=== PATIENT | male | born 1950 | race Caucasian/White ===

== ENCOUNTER → 2016-07-04 | Outpatient (CLI) | payer BC ==
[~2016-07-04] MED LIST: SODIUM CHLORIDE 0.9% 250 ML in EMPTY BAG 1 BAG IV PRN; SODIUM CHLORIDE 0.9% 500 ML in EMPTY BAG 1 BAG IV PRN
[2016-07-04 13:41] LABS: Anisocytosis Slight; CH 22.7; CHCM 29.8; HCT 50.4 % (39.0-53.0); HDW 3.11; HGB 15.8 gm/dL (13.0-17.5); Hypochromasia Marked; MCHC 31.3 g/dL (31.0-37.0); MCV 76.6 fL (80.0-100.0); Mean Platelet Volume 6.4; Microcytosis Slight; RBC 6.58 m/uL (4.30-5.90); RDW 17.1 % (11.5-15.5); WBC 4.3 k/uL (3.8-10.6)
[2016-07-04 13:45] LABS: INR 2.5 (<1.1); Prothrombin Time 23.6 sec (9.0-12.0)
[2016-07-04 14:13] VITALS: RESP 16; TEMP 98.2
[2016-07-04 14:20] VITALS: BP 154/77; PULSE 77
== END | disposition home or self-care (01) ==
LOC: PROCWHC3 12:54
PROVIDERS: ATTEND Internal Medicine
DX: D45 Polycythemia vera (principal)
CPT/HCPCS: 36415; 85027; 85610; 99195

== ENCOUNTER → 2016-09-29 | Day surgery (SDC) | payer BC ==
[2016-09-27 16:15] VITALS: BMI 40.6
[~2016-09-29] MED LIST changes: +LACTATED RINGERS 1,000 ML IV SCH; +LIDOCAINE 1% 20 ML VIAL (10MG/ML) FOR IV START INTRADERMA PRN; +MIDAZOLAM 2 MG/2 ML VIAL ONE; +PROPOFOL 10 MG/ML 20 ML VIAL IV ONE; -SODIUM CHLORIDE 0.9% 250 ML in EMPTY BAG 1 BAG IV PRN; -SODIUM CHLORIDE 0.9% 500 ML in EMPTY BAG 1 BAG IV PRN; +fentaNYL (PF) 50 MCG/ML 2 ML AMP ONE
[2016-09-29 10:37] VITALS: RESP 16; TEMP 97
--- NOTE | 2016-09-29 10:58 | P.GSHP ---
History of Present Illness H&P Date: 09/29/16 Chief Complaint: Abdominal pain, change in bowel habits Patient here today for upper and lower endoscopy. He is complaining some heartburn chronically as well as upper abdominal pain. No dysphagia. He takes antacids as needed. He has had recent constipation with hard stools despite stool softeners. No rectal bleeding or melena. No family history of colon cancer. Last colonoscopy he believes was about 10 years ago and he had a polyp at that time. 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, vertigo, change in bowel habits, uses CPAP History of Any Multi-Drug Resistant Organisms: None Reported Past Surgical History: Back Surgery, Joint Replacement, Orthopedic Surgery Additional Past Surgical History / Comment(s): Herniated disc repair, lt hip replacement , lt shoulder surgery, surgery on portal vein Past Anesthesia/Blood Transfusion Reactions: No Reported Reaction Past Psychological History: No Psychological Hx Reported Smoking Status: Former smoker Past Alcohol Use History: Rare Additional Past Alcohol Use History / Comment(s): SMOKED FROM Past Drug Use History: None Reported - Past Family History Father Family Medical History: Blood Disorder, Cancer, Deep Vein Thrombosis (DVT) Additional Family Medical History / Comment(s): Mother Family Medical History: Cancer Additional Family Medical History / Comment(s): Sister(s) Family Medical History: Blood Disorder, Deep Vein Thrombosis (DVT) Brother(s) Family Medical History: CVA/TIA Medications and Allergies Home Medications Medication Instructions Recorded Confirmed Type Diclofenac Sodium [Voltaren] 75 mg PO DAILY 11/01/13 09/29/16 History Propranolol [Inderal] 5 mg PO 2100,0300 11/01/13 09/29/16 History Warfarin [Coumadin] 7.5 mg PO MOTUTHFRSA 11/01/13 09/29/16 History Warfarin [Coumadin] 10 mg PO SUWE 05/06/15 09/29/16 History HYDROcodone/APAP 7.5-325MG [[place] 1 tab PO Q12H PRN 05/21/15 09/29/16 History 7.5-325] amLODIPine [Norvasc] 5 mg PO 2100 04/26/16 09/29/16 History Oxymetazoline 0.05% Nasl [place] 2 spray EA NOSTRIL BID PRN 09/27/16 09/29/16 History [Afrin 0.05% Nasal [place]] Ranitidine HCl 150 mg PO HS 09/27/16 09/29/16 History Allergies Allergy/AdvReac Type Severity Reaction Status Date / Time enalaprilat [From Vasotec] AdvReac Cough Verified 09/27/16 16:11 erythromycin base AdvReac Rash/Hives Verified 09/27/16 15:48 [From E-Mycin] Surgical - Exam Vital Signs Temp Pulse Resp BP Pulse Ox 97.0 F L 65 16 136/85 97 09/29/16 10:36 09/29/16 10:36 09/29/16 10:36 09/29/16 10:36 09/29/16 10:36 Physical exam: General: Well-developed, well-nourished HEENT: Normocephalic, sclerae nonicteric Abdomen: Nontender, nondistended Extremities: No edema Neuro: Alert and oriented Assessment and Plan (1) Change in bowel habits Narrative/Plan: Will proceed with upper and lower endoscopy at this time. Status: Acute
--- NOTE | 2016-09-29 11:25 | P.PCN ---
Date of Procedure: 09/29/16 Procedure(s) Performed: PREOPERATIVE DIAGNOSIS: Abdominal pain, change in bowel habits POSTOPERATIVE DIAGNOSIS: Duodenitis, duodenal ulcer, gastritis with small erosions, hiatal hernia, distal esophagitis, diverticulosis, small superficial rectal ulceration PROCEDURE: 1. EGD with biopsy 2. Colonoscopy with biopsy ANESTHESIA: [facility] [place] SURGEON: Ki Dela Cruz M.D. SPECIMENS: Duodenum, antrum, GE junction, rectal ulcer ENDOSCOPIC PROCEDURE: The patient was on the endoscopy table in the left decubitus position. The Olympus gastroscope was inserted into the oropharynx and passed under direct visualization to the region of the third portion of the duodenum. From that point the scope was slowly withdrawn inspecting all surfaces carefully. There was evidence of duodenitis. There were 2 ulcerations present at the duodenal bulb. Biopsies of the duodenum took place. The pylorus was widely patent. The stomach was carefully inspected. There was gastritis present with a few small erosions. A biopsy of the antrum took place to rule out H. pylori. Retroflexion revealed a small sliding hiatal hernia. At the GE junction itself there was evidence of erosive esophagitis. Biopsies took place of that region. The remainder of the esophagus appear normal. The patient was kept on the endoscopy table in the left decubitus position. The Olympus colonoscope was inserted into the anus and passed under direct visualization to the base of the cecum. The appendiceal orifice was visualized. From that point the scope was slowly withdrawn inspecting all surfaces carefully. There were no neoplastic inflammatory or polypoid lesions throughout the cecum, ascending, transverse, descending, and sigmoid colon. In the rectum distally there was a small superficial ulceration noted. Biopsies took place of this area. There was mild diverticulosis noted on the left colon. Digital rectal examination was normal. The patient was taken to the recovery room in stable condition per anesthesia guidelines. RECOMMENDATIONS: Begin antiacid therapy. Await biopsy results. Increase stool softeners.
[2016-09-29 11:41] VITALS: PULSE 60
[2016-09-29 11:55] VITALS: BP 94/60
== END ==
LOC: ORWHC2ENDO 10:07
PROVIDERS: ATTEND Surgery
DX: K29.50 Unspecified chronic gastritis without bleeding (principal); K29.80 Duodenitis without bleeding; K52.89 Other specified noninfective gastroenteritis and colitis; K21.0 Gastro-esophageal reflux disease with esophagitis; G47.30 Sleep apnea, unspecified; I10 Essential (primary) hypertension; G47.33 Obstructive sleep apnea (adult) (pediatric); G89.29 Other chronic pain; Z99.89 Dependence on other enabling machines and devices; Z86.718 Personal history of other venous thrombosis and embolism; Z79.01 Long term (current) use of anticoagulants; Z79.899 Other long term (current) drug therapy; K59.00 Constipation, unspecified; Z86.010 Personal history of colon polyps; D75.1 Secondary polycythemia; Z87.891 Personal history of nicotine dependence
CPT/HCPCS: 88305; 88342; 45378; 43239; J2250; J3010; J2704

== ENCOUNTER → 2017-01-22 | Outpatient (CLI) | payer BC, MEDICARE ==
[2017-01-22 14:28] VITALS: BP 126/73; PULSE 71; RESP 16; TEMP 98.1
[2017-01-22 14:40] LABS: Anisocytosis Slight; CH 25.8; CHCM 31.5; HCT 56.1 % (39.0-53.0); HDW 2.76; HGB 17.3 gm/dL (13.0-17.5); Hypochromasia Slight; MCH 25.3 pg (25.0-35.0); MCHC 30.8 g/dL (31.0-37.0); MCV 82.2 fL (80.0-100.0); Microcytosis Slight; RBC 6.82 m/uL (4.30-5.90); RDW 18.9 % (11.5-15.5)
[2017-01-22 14:51] LABS: INR 1.6 (<1.2); Prothrombin Time 15.2 sec (9.0-12.0)
== END ==
LOC: PROCWHC3 14:22
PROVIDERS: ATTEND Internal Medicine
DX: D45 Polycythemia vera (principal)
CPT/HCPCS: 36415; 85027; 85610; 99195

== ENCOUNTER 2017-02-23 10:27 | Emergency (ER) | payer MEDICARE ==
[2017-02-23 10:35] VITALS: TEMP 97.8
[2017-02-23] MEDS ORDERED: SODIUM CHLORIDE 0.9% 1,000 ML IV STA ×2 (11:00)
--- NOTE | 2017-02-23 11:02 | ED ---
General Adult HPI - General Source: patient, RN notes reviewed Mode of arrival: ambulatory Limitations: no limitations <Ki Ohara - Last Filed: 02/23/17 15:27> <Zuhair Pascual - Last Filed: 02/24/17 08:29> - General Chief complaint: Abdominal Pain Stated complaint: Abd pain/constipation Time Seen by Provider: 02/23/17 10:50 - History of Present Illness Initial comments: Patient 66-year-old male who presents emergency room today with chief complaint of symptoms of constipation over the last 2 weeks. He states he's only had small bowel movements. He states been trying multiple [id number] and home remedies with little relief. He states he does have some cramping abdominal pain in the lower abdomen. Patient admits that he had similar symptoms a few months ago needed an enema. Patient denies any other complaints or symptoms currently at this time. Patient denies any recent fever, chills, shortness of breath, chest pain, back pain, nausea or vomiting, numbness or tingling, dysuria or hematuria, diarrhea, headaches or visual changes, or any other complaints. (Ki Ohara) - Related Data Home Medications Medication Instructions Recorded Confirmed Diclofenac Sodium [Voltaren] 75 mg PO DAILY 11/01/13 02/23/17 Propranolol [Inderal] 5 mg PO 2100,0300 11/01/13 02/23/17 HYDROcodone/APAP 7.5-325MG [[place] 1 tab PO Q12H PRN 05/21/15 02/23/17 7.5-325] amLODIPine [Norvasc] 5 mg PO HS 04/26/16 02/23/17 Oxymetazoline 0.05% Nasl [place] 2 spray EA NOSTRIL BID PRN 09/27/16 02/23/17 [Afrin 0.05% Nasal [place]] Ranitidine HCl 150 mg PO HS 09/27/16 02/23/17 Warfarin [Coumadin] 7.5 mg PO MOTUTHFRSA 02/23/17 02/23/17 Warfarin [Coumadin] 10 mg PO SUWE 02/23/17 02/23/17 Previous Rx's Medication Instructions Recorded Polyethylene Glycol 3350 [Miralax] 17 gm PO DAILY #7 packet 02/23/17 Allergies Allergy/AdvReac Type Severity Reaction Status Date / Time enalaprilat [From Vasotec] AdvReac Cough Verified 02/23/17 10:55 erythromycin base AdvReac Rash/Hives Verified 02/23/17 10:55 [From E-Mycin] Review of Systems ROS Other: All systems not noted in ROS Statement are negative. <Ki Ohara - Last Filed: 02/23/17 15:27> ROS Other: All systems not noted in ROS Statement are negative. <Zuhair Pascual - Last Filed: 02/24/17 08:29> ROS Statement: Those systems with pertinent positive or pertinent negative responses have been documented in the HPI. 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, vertigo, change in bowel habits, uses CPAP History of Any Multi-Drug Resistant Organisms: None Reported Past Surgical History: Back Surgery, Joint Replacement, Orthopedic Surgery Additional Past Surgical History / Comment(s): Herniated disc repair, lt hip replacement , lt shoulder surgery, surgery on portal vein Past Anesthesia/Blood Transfusion Reactions: No Reported Reaction Past Psychological History: No Psychological Hx Reported Smoking Status: Former smoker - Past Family History Father Family Medical History: Blood Disorder, Cancer, Deep Vein Thrombosis (DVT) Additional Family Medical History / Comment(s): Mother Family Medical History: Cancer Additional Family Medical History / Comment(s): Sister(s) Family Medical History: Blood Disorder, Deep Vein Thrombosis (DVT) Brother(s) Family Medical History: CVA/TIA <Ki Ohara - Last Filed: 02/23/17 15:27> General Exam Limitations: no limitations <Ki Ohara - Last Filed: 02/23/17 15:27> <Zuhair Pascual - Last Filed: 02/24/17 08:29> - General Exam Comments Initial Comments: General: The patient is awake and alert, in no distress, and does not appear acutely ill. Eye: Pupils are equal, round and reactive to light, extra-ocular movements are intact. No nystagmus. There is normal conjunctiva bilaterally. No signs of icterus. Ears, nose, mouth and throat: There are moist mucous membranes and no oral lesions. Neck: The neck is supple, there is no tenderness or JVD. Cardiovascular: There is a regular rate and rhythm. No murmur, rub or gallop is appreciated. Respiratory: Lungs are clear to auscultation, respirations are non-labored, breath sounds are equal. No wheezes, stridor, rales, or rhonchi. Gastrointestinal: Abdomen soft on palpation. Normal bowel sounds. No rebound tenderness. No guarding. Mild discomfort on palpation to the lower abdomen both on left and right. Musculoskeletal: Normal ROM, no tenderness. Strength 5/5. Sensation intact. Pulses equal bilaterally 2+. Neurological: A&O x 3. CN II-XII intact, There are no obvious motor or sensory deficits. Coordination appears grossly intact. Speech is normal. Skin: Skin is warm and dry and no rashes or lesions are noted. Psychiatric: Cooperative, appropriate mood & affect, normal judgment. (Ki Ohara) Medical Decision Making - Lab Data Result diagrams: 02/23/17 11:18 02/23/17 11:18 <Ki Ohara - Last Filed: 02/23/17 15:27> - Lab Data Result diagrams: 02/23/17 11:18 02/23/17 11:18 <Zuhair Pascual - Last Filed: 02/24/17 08:29> - Medical Decision Making Patient's CT reviewed and shows findings suggestive of extensive retained fecal degrees. Additional localized wall thickening involving sigmoid colon. Patient is medicated recent colonoscopy. Patient does have diverticulosis no diverticulitis. Numerous versus seen in the upper abdomen to hepatocellular disease. 4. Portal vein is poorly opacified. Patient states is chronic finding. States this occurred 12 years ago was at [facility] for this. Case discussed in detail with attending physician who has seen patient at bedside. Patient reexamined at this time shows no signs of distress resting comfortably. Patient given Ativan emergency room was able have bowel movement. States more carpal at this time. Will be discharged home with magnesium citrate. He is advised to follow-up with his family doctor increase his oral fluids will also be given a prescription for MiraLAX. Advised return for any other concerns. (Ki Ohara) 66-year-old male presenting with two-week history of decreased bowel movements. Patient has history of portal vein thrombosis which occurred approximately 12 years ago. There was an attempt to remove the thrombus at that time. This was unsuccessful. Patient has had this issue since then. CT of the abdomen is obtained, does show extensive retained feces, there is poor opacification of the portal vein consistent with his past medical history. Patient is given an enema and magnesium citrate. He does have several large bowel movement while in the emergency department. Patient is comfortable with discharge home. He will return to the emergency department with worsening symptoms. He will follow -up with his primary care physician. (Zuhair Pascual) - Lab Data Lab Results 02/23/17 02/23/17 02/23/17 Range/Units 11:18 11:18 11:18 WBC 4.0 (3.8-10.6) k/uL RBC 6.76 H (4.30-5.90) m/uL Hgb 17.3 (13.0-17.5) gm/dL Hct 55.5 H (39.0-53.0) % MCV 82.1 (80.0-100.0) fL MCH 25.7 (25.0-35.0) pg MCHC 31.3 (31.0-37.0) g/dL RDW 16.7 H (11.5-15.5) % Plt Count 215 (150-450) k/uL Neutrophils % 53 % Lymphocytes % 32 % Monocytes % 9 % Eosinophils % 2 % Basophils % 1 % Neutrophils # 2.1 (1.3-7.7) k/uL Lymphocytes # 1.3 (1.0-4.8) k/uL Monocytes # 0.4 (0-1.0) k/uL Eosinophils # 0.1 (0-0.7) k/uL Basophils # 0.0 (0-0.2) k/uL Hypochromasia Moderate Anisocytosis Slight PT (9.0-12.0) sec INR (<1.2) APTT (22.0-30.0) sec Sodium 141 (137-145) mmol/L Potassium 4.4 (3.5-5.1) mmol/L Chloride 108 H (98-107) mmol/L Carbon Dioxide 22 (22-30) mmol/L Anion Gap 11 mmol/L BUN 14 (9-20) mg/dL Creatinine 0.78 (0.66-1.25) mg/dL Est GFR (MDRD) Af Amer >60 (>60 ml/min/1.73 sqM) Est GFR (MDRD) Non-Af >60 (>60 ml/min/1.73 sqM) Glucose 95 (74-99) mg/dL Plasma Lactic Acid [place] 1.0 (0.7-2.0) mmol/L Calcium 9.2 (8.4-10.2) mg/dL Total Bilirubin 0.7 (0.2-1.3) mg/dL AST 23 (17-59) U/L ALT 29 (21-72) U/L Alkaline Phosphatase 82 (38-126) U/L Total Protein 6.9 (6.3-8.2) g/dL Albumin 4.1 (3.5-5.0) g/dL Urine Color Urine Appearance (Clear) Urine pH (5.0-8.0) Ur Specific [place] (1.001-1.035) Urine Protein (Negative) Urine Glucose (UA) (Negative) Urine Ketones (Negative) Urine Blood (Negative) Urine Nitrite (Negative) Urine Bilirubin (Negative) Urine Urobilinogen (<2.0) mg/dL Ur Leukocyte Esterase (Negative) 02/23/17 02/23/17 Range/Units 11:18 12:57 WBC (3.8-10.6) k/uL RBC (4.30-5.90) m/uL Hgb (13.0-17.5) gm/dL Hct (39.0-53.0) % MCV (80.0-100.0) fL MCH (25.0-35.0) pg MCHC (31.0-37.0) g/dL RDW (11.5-15.5) % Plt Count (150-450) k/uL Neutrophils % % Lymphocytes % % Monocytes % % Eosinophils % % Basophils % % Neutrophils # (1.3-7.7) k/uL Lymphocytes # (1.0-4.8) k/uL Monocytes # (0-1.0) k/uL Eosinophils # (0-0.7) k/uL Basophils # (0-0.2) k/uL Hypochromasia Anisocytosis PT 17.5 H (9.0-12.0) sec INR 1.8 H (<1.2) APTT 28.1 (22.0-30.0) sec Sodium (137-145) mmol/L Potassium (3.5-5.1) mmol/L Chloride (98-107) mmol/L Carbon Dioxide (22-30) mmol/L Anion Gap mmol/L BUN (9-20) mg/dL Creatinine (0.66-1.25) mg/dL Est GFR (MDRD) Af Amer (>60 ml/min/1.73 sqM) Est GFR (MDRD) Non-Af (>60 ml/min/1.73 sqM) Glucose (74-99) mg/dL Plasma Lactic Acid [place] (0.7-2.0) mmol/L Calcium (8.4-10.2) mg/dL Total Bilirubin (0.2-1.3) mg/dL AST (17-59) U/L ALT (21-72) U/L Alkaline Phosphatase (38-126) U/L Total Protein (6.3-8.2) g/dL Albumin (3.5-5.0) g/dL Urine Color Yellow Urine Appearance Clear (Clear) Urine pH 7.0 (5.0-8.0) Ur Specific [place] 1.015 (1.001-1.035) Urine Protein Trace H (Negative) Urine Glucose (UA) Negative (Negative) Urine Ketones Negative (Negative) Urine Blood Negative (Negative) Urine Nitrite Negative (Negative) Urine Bilirubin Negative (Negative) Urine Urobilinogen <2.0 (<2.0) mg/dL Ur Leukocyte Esterase Negative (Negative) Disposition Time of Disposition: 15:29 <Ki Ohara - Last Filed: 02/23/17 15:27> <Zuhair Pascual - Last Filed: 02/24/17 08:29> Clinical Impression: Abdominal pain Disposition: HOME SELF-CARE Condition: Good Instructions: Constipation (ED) Additional Instructions: Please use medication as discussed. Please follow-up with family doctor in the next 2 days. Please return to emergency room if the symptoms increase or worsen or for any other concerns. Prescriptions: Polyethylene Glycol 3350 [Miralax] 17 gm PO DAILY #7 packet Referrals: Moris Hernandez MD [Primary Care Provider] - 1-2 days
[2017-02-23 11:34] LABS: Anisocytosis Slight; Basophils % (A) 1 %; CHCM 30.6; Eosinophils # (A) 0.1 k/uL (0-0.7); Eosinophils % (A) 2 %; HCT 55.5 % (39.0-53.0); HDW 2.62; HGB 17.3 gm/dL (13.0-17.5); Hypochromasia Moderate; Luc # (Auto) 0.13; Luc % (Auto) 3; Lymphocytes # (A) 1.3 k/uL (1.0-4.8); Lymphocytes % (A) 32 %; MCH 25.7 pg (25.0-35.0); MCHC 31.3 g/dL (31.0-37.0); MCV 82.1 fL (80.0-100.0); Mean Platelet Volume 6.6; Monocytes # (A) 0.4 k/uL (0-1.0); Monocytes % (A) 9 %; Neutrophils # (A) 2.1 k/uL (1.3-7.7); Neutrophils % (A) 53 %; RBC 6.76 m/uL (4.30-5.90); RDW 16.7 % (11.5-15.5); WBC (Perox) 3.69
[2017-02-23 11:40] LABS: Appearance,Urine Clear (Clear); Bilirubin,Urine Negative (Negative); Glucose,Urine (UA) Negative (Negative); Ketones,Urine Negative (Negative); Leukocyte Esterase,Urine Negative (Negative); Nitrite,Urine Negative (Negative); Protein,Urine Trace (Negative); Specific Gravity,Urine 1.015 (1.001-1.035); UA Billing (MACRO vs. MICRO) CHEM; Urobilinogen,Urine <2.0 mg/dL (<2.0)
[2017-02-23 11:51] LABS: ALT 29 U/L (21-72); AST 23 U/L (17-59); Alkaline Phosphatase 82 U/L (38-126); Anion Gap 11 mmol/L; Blood Urea Nitrogen 14 mg/dL (9-20); Calcium 9.2 mg/dL (8.4-10.2); Carbon Dioxide 22 mmol/L (22-30); Chloride 108 mmol/L (98-107); Glucose 95 mg/dL (74-99); Non-African American GFR(MDRD) >60 (>60 ml/min/1.73 sqM); Potassium 4.4 mmol/L (3.5-5.1); Sodium 141 mmol/L (137-145); Total Bilirubin 0.7 mg/dL (0.2-1.3); Total Protein 6.9 g/dL (6.3-8.2)
[2017-02-23] MEDS ORDERED: ONDANSETRON 4 MG/2 ML VIAL IVP STA (11:52)
[2017-02-23] MEDS ORDERED: HYDROmorphone 1 MG/ML 1 ML SYRINGE IVP STA (11:52)
[2017-02-23] MEDS ORDERED: NA PHOS,M-B/NA PHOS,DI-BA 133 ML ENEMA RECTAL STA (12:03)
--- NOTE | 2017-02-23 12:05 | XR ---
EXAMINATION TYPE: XR abdomen complete w decub DATE OF EXAM: 02/23/2017 COMPARISON: NONE HISTORY: Abdominal pain TECHNIQUE: Supine, upright, and left side down lateral decubitus views of the abdomen are obtained. FINDINGS: Bowel gas pattern nonspecific. No diagnostic evidence of obstruction. Scoliosis and multile matthew degenerative disc disease seen. Arthropathy of the right hip. Postsurgical change left hip. Lung bases are clear. IMPRESSION: Nonspecific abdomen with no evidence of obstruction
[2017-02-23] MEDS ORDERED: RX INFO: IV CONTRAST WAS GIVEN 1 EACH MISC MISCELLANE PRN (12:22)
[2017-02-23 13:22] LABS: INR 1.8 (<1.2); Partial Thromboplastin Time 28.1 sec (22.0-30.0); Prothrombin Time 17.5 sec (9.0-12.0)
[2017-02-23 13:56] VITALS: RESP 16
--- NOTE | 2017-02-23 15:06 | CT ---
EXAMINATION TYPE: CT abdomen pelvis w con DATE OF EXAM: 02/23/2017 COMPARISON: NONE HISTORY: Abdominal pain with constipation x2 weeks. CT DLP: 2138 mGycm Automated exposure control for dose reduction was used. CONTRAST: CT scan of the abdomen pelvis is performed with IV Contrast, patient injected with 100 mL of Omnipaqu e 300. FINDINGS- LUNG BASES- No significant abnormality is appreciated. LIVER/GB- No gross abnormality is appreciated. PANCREAS- No gross abnormality is seen. SPLEEN- No gross abnormality is seen. ADRENALS- No gross abnormality is seen. KIDNEYS/BLADDER- no hydronephrosis nephrolithiasis or renal mass. BOWEL-bowel gas pattern nonspecific. There is diverticulosis of the sigmoid colon. Area of localized wall thickening involving the sigmoid colon may be related to incomplete distention. Mucosal lesion c ould not be excluded correlate clinically.. Small hiatal hernia noted LYMPH NODES- No greater than 1cm abdominal or pelvic lymph nodes areappreciated. OSSEOUS STRUCTURES-hypertrophic and degenerative change of the spine seen with severe degenerative di sc disease and scoliosis. Multilevel retrolisthesis extending from L2 through L5 noted. Likely result s in a degree of Canal stenosis. OTHER- there are numerous varices within the upper abdomen. Correlate with hepatic function for hist ory of liver disease. There is poor visualization of portal vein. This could be correlated with ultra sound may be related to phase of imaging. Prosthetic left hip results in artifact limits evaluation t he pelvis. Prostatic calcifications are seen. IMPRESSION- 1. Findings suggest extensive retained fecal debris correlate for constipation. Additionally there is localized wall thickening involving the sigmoid colon. Underlying mucosal lesion not excluded consid er direct visualization. 2. Diverticulosis with no CT evidence of diverticulitis 3. Numerous varices seen in the upper abdomen correlate for hepatocellular disease. 4. Portal vein is poorly opacified which may be secondary to the phase of imaging. Correlate with ult rasound.
[2017-02-23] MEDS ORDERED: MAGNESIUM CITRATE 296 ML BOTTLE PO ONE (15:26)
[2017-02-23 15:43] VITALS: BP 153/89; PULSE 55
== END 2017-02-23 15:42 | disposition home or self-care (01) ==
LOC: EC 10:27
DX: R10.9 Unspecified abdominal pain (principal); K21.9 Gastro-esophageal reflux disease without esophagitis; I10 Essential (primary) hypertension; Z86.718 Personal history of other venous thrombosis and embolism; Z87.891 Personal history of nicotine dependence; Z79.01 Long term (current) use of anticoagulants; Z79.899 Other long term (current) drug therapy; Z88.1 Allergy status to other antibiotic agents; Z88.8 Allergy status to other drugs, medicaments and biological substances
CPT/HCPCS: 36415; 80053; 83605; 85025; 85610; 85730; 81003; 74020; 74177; 99284; 96374; 96375; 96361 ×4; J2405; J1170; Q9967

== ENCOUNTER → 2017-02-23 | Outpatient (CLI) | payer MEDICARE ==
--- NOTE | 2017-02-23 14:27 | US ---
EXAMINATION TYPE: US abdomen complete DATE OF EXAM: 02/23/2017 COMPARISON: NONE CLINICAL HISTORY: Severe Constipation R69.89, R10.84 Abd Pain. Pt states constipation EXAM MEASUREMENTS: Liver Length: 13.7 cm Gallbladder Wall: 0.3 cm CBD: 0.4 cm Spleen: 14.5 cm Right Kidney: 11.2 x 5.6 x 5.5 cm Left Kidney: 12.6 x 5.5 x 5.9 cm Large pt body habitus, very limited exam Pancreas: Obscured by bowel gas Liver: Limited visualization shows no abnormality Gallbladder: Lumen clear/ possible calcifications within wall Evidence for sonographic Morton's sign: No CBD: wnl Spleen: Enlarged Right Kidney: wnl, lower pole gassed out Left Kidney: wnl Upper IVC: wnl Abd Aorta: wnl IMPRESSION: 1. No suspicious acute changes. 2. Limited exam due to body habitus. 3. Splenomegaly
== END | disposition home or self-care (01) ==
LOC: RADUSWWP 09:57
PROVIDERS: ATTEND Internal Medicine
DX: R16.1 Splenomegaly, not elsewhere classified (principal); R10.84 Generalized abdominal pain
CPT/HCPCS: 76700

== ENCOUNTER → 2017-07-09 | Outpatient (CLI) | payer MEDICARE ==
[2017-07-09 13:11] VITALS: TEMP 98.8
[2017-07-09 13:25] LABS: Anisocytosis Slight; HCT 50.1 % (39.0-53.0); HGB 14.9 gm/dL (13.0-17.5); Hypochromasia Marked; MCH 22.5 pg (25.0-35.0); MCHC 29.8 g/dL (31.0-37.0); MCV 75.6 fL (80.0-100.0); Mean Platelet Volume 6.4; Microcytosis Slight; Platelet Count 229 k/uL (150-450); RBC 6.63 m/uL (4.30-5.90); WBC 4.9 k/uL (3.8-10.6)
[2017-07-09 13:29] LABS: INR 2.7 (<1.2); Prothrombin Time 24.2 sec (9.0-12.0)
[2017-07-09 13:46] VITALS: BP 150/93; PULSE 59; RESP 16
== END | disposition home or self-care (01) ==
LOC: PROCWHC3 12:19
PROVIDERS: ATTEND Internal Medicine
DX: D45 Polycythemia vera (principal)
CPT/HCPCS: 36415; 85027; 85610; 99195

== ENCOUNTER → 2017-08-28 | Outpatient (CLI) | payer MEDICARE ==
[~2017-08-28] MED LIST changes: -LACTATED RINGERS 1,000 ML IV SCH; -LIDOCAINE 1% 20 ML VIAL (10MG/ML) FOR IV START INTRADERMA PRN; -MIDAZOLAM 2 MG/2 ML VIAL ONE; -PROPOFOL 10 MG/ML 20 ML VIAL IV ONE; +SODIUM CHLORIDE 0.9% 500 ML in EMPTY BAG 1 BAG IV PRN; -fentaNYL (PF) 50 MCG/ML 2 ML AMP ONE
[2017-08-28 13:55] VITALS: BP 172/89; PULSE 74; RESP 16; TEMP 98.2
[2017-08-28 14:05] LABS: Anisocytosis Slight; HCT 47.7 % (39.0-53.0); HGB 14.6 gm/dL (13.0-17.5); Hypochromasia Marked; MCH 22.2 pg (25.0-35.0); MCHC 30.6 g/dL (31.0-37.0); MCV 72.8 fL (80.0-100.0); Mean Platelet Volume 6.9; Microcytosis Moderate; Platelet Count 209 k/uL (150-450); RBC 6.56 m/uL (4.30-5.90); RDW 17.2 % (11.5-15.5); WBC 4.8 k/uL (3.8-10.6)
[2017-08-28 14:08] LABS: INR 1.5 (<1.2); Prothrombin Time 14.1 sec (9.0-12.0)
== END | disposition home or self-care (01) ==
LOC: PROCWHC3 13:11
PROVIDERS: ATTEND Internal Medicine
DX: D45 Polycythemia vera (principal)
CPT/HCPCS: 36415; 85027; 85610; 99195

== ENCOUNTER → 2017-12-21 | Outpatient (CLI) | payer MEDICARE ==
[2017-12-21 12:40] VITALS: RESP 16; TEMP 98.5
[2017-12-21 12:44] LABS: Anisocytosis Slight; Basophils % (A) 1 %; Eosinophils # (A) 0.1 k/uL (0-0.7); Eosinophils % (A) 2 %; HCT 49.8 % (39.0-53.0); HGB 15.7 gm/dL (13.0-17.5); Hypochromasia Slight; Lymphocytes # (A) 1.6 k/uL (1.0-4.8); Lymphocytes % (A) 35 %; MCH 22.9 pg (25.0-35.0); MCHC 31.5 g/dL (31.0-37.0); MCV 72.8 fL (80.0-100.0); Mean Platelet Volume 6.7; Microcytosis Moderate; Monocytes # (A) 0.4 k/uL (0-1.0); Monocytes % (A) 8 %; Neutrophils # (A) 2.5 k/uL (1.3-7.7); Neutrophils % (A) 53 %; Platelet Count 196 k/uL (150-450); RBC 6.85 m/uL (4.30-5.90); RDW 18.3 % (11.5-15.5); WBC 4.6 k/uL (3.8-10.6)
[2017-12-21 13:17] VITALS: BP 133/82; PULSE 71
== END | disposition home or self-care (01) ==
LOC: PROCWHC3 12:12
PROVIDERS: ATTEND Internal Medicine
DX: D45 Polycythemia vera (principal)
CPT/HCPCS: 36415; 85025; 99195

== ENCOUNTER → 2019-06-26 | Outpatient (CLI) | payer MEDICARE ==
[~2019-06-26] MED LIST changes: +SODIUM CHLORIDE 0.9% 500 ML 500 ML in EMPTY BAG 1 BAG IV PRN; -SODIUM CHLORIDE 0.9% 500 ML in EMPTY BAG 1 BAG IV PRN
[2019-06-26 14:22] VITALS: RESP 18; TEMP 98
[2019-06-26 14:38] LABS: Anisocytosis Slight; Basophils # (A) 0.1 k/uL (0-0.2); Basophils % (A) 1 %; Eosinophils # (A) 0.1 k/uL (0-0.7); Eosinophils % (A) 2 %; HCT 50.9 % (39.0-53.0); HGB 15.6 gm/dL (13.0-17.5); Hypochromasia Marked; Lymphocytes # (A) 1.1 k/uL (1.0-4.8); Lymphocytes % (A) 24 %; MCHC 30.7 g/dL (31.0-37.0); MCV 74.8 fL (80.0-100.0); Mean Platelet Volume 7.3; Microcytosis Moderate; Monocytes # (A) 0.4 k/uL (0-1.0); Monocytes % (A) 8 %; Neutrophils % (A) 63 %; Platelet Count 243 k/uL (150-450); RDW 18.5 % (11.5-15.5); WBC 4.7 k/uL (3.8-10.6)
[2019-06-26 14:43] LABS: Prothrombin Time 19.2 sec (9.0-12.0)
[2019-06-26 15:28] VITALS: BP 125/77; PULSE 61
== END | disposition home or self-care (01) ==
LOC: PROCWHC3 13:40
PROVIDERS: ATTEND Internal Medicine
DX: D45 Polycythemia vera (principal)
CPT/HCPCS: 36415; 85025; 85610; 99195

== ENCOUNTER → 2020-02-16 | Outpatient (CLI) | payer MEDICARE ==
[2020-02-16 11:05] VITALS: PULSE 75; RESP 16; TEMP 97.7
[2020-02-16 11:15] LABS: Anisocytosis Slight; HCT 52.5 % (39.0-53.0); HGB 16.1 gm/dL (13.0-17.5); Hypochromasia Marked; MCH 23.2 pg (25.0-35.0); MCHC 30.7 g/dL (31.0-37.0); MCV 75.7 fL (80.0-100.0); Mean Platelet Volume 6.9; Microcytosis Moderate; Platelet Count 204 k/uL (150-450); RBC 6.94 m/uL (4.30-5.90); RDW 18.9 % (11.5-15.5)
[2020-02-16 11:31] LABS: INR 2.4 (<1.2); Prothrombin Time 23.2 sec (9.0-12.0)
[2020-02-16 11:55] VITALS: BP 162/98
== END | disposition home or self-care (01) ==
LOC: PROCWHC3 10:49
PROVIDERS: ATTEND Internal Medicine
DX: D45 Polycythemia vera (principal)
CPT/HCPCS: 36415; 85027; 85610; 99195

== ENCOUNTER → 2020-07-22 | Outpatient (CLI) | payer MEDICARE ==
[2020-07-22 11:18] VITALS: PULSE 84; TEMP 98.2
[2020-07-22 11:36] LABS: Anisocytosis Slight; HCT 52.4 % (39.0-53.0); HGB 16.1 gm/dL (13.0-17.5); Hypochromasia Marked; MCH 22.3 pg (25.0-35.0); MCHC 30.8 g/dL (31.0-37.0); MCV 72.6 fL (80.0-100.0); Mean Platelet Volume 6.9; Microcytosis Moderate; Platelet Count 243 k/uL (150-450); RDW 18.5 % (11.5-15.5); WBC 5.3 k/uL (3.8-10.6)
[2020-07-22 11:43] LABS: INR 1.7 (<1.2); Prothrombin Time 16.8 sec (9.0-12.0)
[2020-07-22 11:50] LABS: RBC 7.22 m/uL (4.30-5.90)
[2020-07-22 12:28] VITALS: BP 134/85; RESP 16
== END | disposition home or self-care (01) ==
LOC: PROCWHC3 10:58
PROVIDERS: ATTEND Internal Medicine
DX: D45 Polycythemia vera (principal)
CPT/HCPCS: 36415; 85027; 85610; 99195

== ENCOUNTER → 2020-07-22 | Outpatient (CLI) | payer MEDICARE ==
--- NOTE | 2020-07-22 13:00 | ECHOF ---
Referral Reason:I10 Hypertension, R01.1 Cardiac murmur, unspecifie MEASUREMENTS -------- HEIGHT: 165.1 cm WEIGHT: 136.1 kg BP: RVIDd: 3.3 cm (< 3.3) IVSd: 1.3 cm (0.6 - 1.1) LVIDd: 5.4 cm (3.9 - 5.3) LVPWd: 1.4 cm (0.6 - 1.1) IVSs: 1.9 cm LVIDs: 3.2 cm LVPWs: 2.2 cm LA Diam: 6.0 cm (2.7 - 3.8) LAESV Index (A-L): 61.00 ml/m Ao Diam: 3.7 cm (2.0 - 3.7) AV Cusp: 1.4 cm (1.5 - 2.6) LA Diam: 5.2 cm (2.7 - 3.8) MV EXCURSION: 23.818 mm (> 18.000) MV EF SLOPE: 143 mm/s (70 - 150) EPSS: 0.3 cm AV maxP.32 mmHg AV meanP.29 mmHg RAP: 5.00 mmHg RVSP: 25.69 mmHg FINDINGS -------- Atrial fibrillation. This was a technically adequate study. The left ventricular size is normal. There is mild concentric left ventricular hypertrophy. Overa ll left ventricular systolic function is low-normal with, an EF between 50 - 55 %. The right ventricle is normal in size. LA is severely dilated >40 ml/m2 The right atrial size is normal. There is moderate aortic stenosis present. Peak/mean gradient across the Aortic Valve is 28.32mmHg / 16.29mmHg. Mild mitral regurgitation is present. Mild tricuspid regurgitation present. The right ventricular systolic pressure, as measured by Doppl er, is 25.69mmHg. There is no pulmonic regurgitation present. The aortic root size is normal. There is no pericardial effusion. CONCLUSIONS -------- 1. Atrial fibrillation. 2. The left ventricular size is normal. 3. There is mild concentric left ventricular hypertrophy. 4. Overall left ventricular systolic function is low-normal with, an EF between 50 - 55 %. 5. The right ventricle is normal in size. 6. LA is severely dilated >40 ml/m2 7. The right atrial size is normal. 8. There is moderate aortic stenosis present. 9. Peak/mean gradient across the Aortic Valve is 28.32mmHg / 16.29mmHg. 10. Mild mitral regurgitation is present. 11. Mild tricuspid regurgitation present. 12. The right ventricular systolic pressure, as measured by Doppler, is 25.69mmHg. 13. There is no pulmonic regurgitation present. 14. The aortic root size is normal. 15. There is no pericardial effusion. EDUCATIONAL CONSULTANT: Alexandra Ramirez RDCS
== END | disposition home or self-care (01) ==
LOC: RADECHMAIN 10:20
PROVIDERS: ATTEND Internal Medicine
DX: I08.1 Rheumatic disorders of both mitral and tricuspid valves (principal); I48.91 Unspecified atrial fibrillation; I11.9 Hypertensive heart disease without heart failure; Z88.1 Allergy status to other antibiotic agents; Z88.2 Allergy status to sulfonamides
CPT/HCPCS: 93306

== ENCOUNTER 2023-08-06 11:24 | Observation (INO) | payer MEDICARE ==
[2023-08-06 12:22] LABS: Anisocytosis Slight; Basophils # (A) 0.1 k/uL (0-0.2); Basophils % (A) 1 %; Eosinophils % (A) 1 %; Hypochromasia Moderate; Lymphocytes # (A) 1.1 k/uL (1.0-4.8); Lymphocytes % (A) 23 %; MCH 24.5 pg (25.0-35.0); MCHC 31.5 g/dL (31.0-37.0); MCV 77.8 fL (80.0-100.0); Mean Platelet Volume 10.9; Microcytosis Slight; Monocytes # (A) 0.4 k/uL (0-1.0); Monocytes % (A) 9 %; Neutrophils % (A) 63 %; Platelet Count 210 k/uL (150-450); Poikilocytosis Slight; RDW 17.8 % (11.5-15.5); WBC 4.8 k/uL (3.8-10.6)
[2023-08-06 12:24] LABS: RBC 7.32 m/uL (4.30-5.90)
--- NOTE | 2023-08-06 12:29 | ED ---
General Adult HPI - General Chief complaint: Fall Stated complaint: Dizzines Time Seen by Provider: 08/06/23 11:30 Source: patient, EMS, RN notes reviewed Mode of arrival: EMS Limitations: no limitations - History of Present Illness Initial comments: 72-year-old male presents emergency department with chief complaint of dizziness. Patient states that he cannot walk without falling over. He states he is so dizzy he has to use the martinez to walk. He states the dizziness started yesterday. Does admit that he fell 4 to 5 days ago striking his head when he had a aldair on the frontal aspect. Patient does take Coumadin for history of A- fib. Patient denies any focal weakness denies chest pain or palpitations he states that dizziness is better at rest. Denies any recent infections denies c any urinary symptoms or abdominal complaints. - Related Data Home Medications Medication Instructions Recorded Confirmed Propranolol [Inderal] 5 mg PO 2100,0300 11/01/13 07/22/20 amLODIPine [Norvasc] 5 mg PO HS 04/26/16 07/22/20 Oxymetazoline 0.05% Nasl [place] 2 spray EA NOSTRIL BID PRN 09/27/16 07/22/20 [Afrin 0.05% Nasal [place]] raNITIdine HCL [Zantac] 150 mg PO HS 09/27/16 07/22/20 Warfarin [Coumadin] 5 mg 07/22/20 Previous Rx's Medication Instructions Recorded polyethylene glycoL 3350 [Miralax] 17 gm PO DAILY #7 packet 02/23/17 Allergies Allergy/AdvReac Type Severity Reaction Status Date / Time enalaprilat [From Vasotec] AdvReac Cough Verified 07/22/20 11:09 erythromycin base AdvReac Rash/Hives Verified 07/22/20 11:09 [From E-Mycin] Review of Systems ROS Statement: Those systems with pertinent positive or pertinent negative responses have been documented in the HPI. ROS Other: All systems not noted in ROS Statement are negative. 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 PROSTATE CANCER. History of Any Multi-Drug Resistant Organisms: None Reported Past Surgical History: Back Surgery, Joint Replacement, Orthopedic Surgery Additional Past Surgical History / Comment(s): Herniated disc repair, lt hip replacement , lt shoulder surgery, surgery on portal vein Past Anesthesia/Blood Transfusion Reactions: No Reported Reaction Past Psychological History: No Psychological Hx Reported Smoking Status: Former smoker Past Alcohol Use History: Rare Past Drug Use History: None Reported - Past Family History Father Family Medical History: Blood Disorder, Cancer, Deep Vein Thrombosis (DVT) Additional Family Medical History / Comment(s): Mother Family Medical History: Cancer Additional Family Medical History / Comment(s): Sister(s) Family Medical History: Blood Disorder, Deep Vein Thrombosis (DVT) Brother(s) Family Medical History: CVA/TIA General Exam Limitations: no limitations General appearance: alert, in no apparent distress Head exam: Present: atraumatic, normocephalic, normal inspection Eye exam: Present: normal appearance, PERRL, EOMI. Absent: scleral icterus, conjunctival injection, periorbital swelling ENT exam: Present: normal exam, normal oropharynx, mucous membranes moist Neck exam: Present: normal inspection, full ROM. Absent: tenderness, meningismus, lymphadenopathy Respiratory exam: Present: normal lung sounds bilaterally. Absent: respiratory distress, wheezes, rales, rhonchi, stridor Cardiovascular Exam: Present: irregular rhythm, normal heart sounds. Absent: regular rate, normal rhythm, systolic murmur, diastolic murmur, rubs, gallop, clicks GI/Abdominal exam: Present: soft, normal bowel sounds. Absent: distended, tenderness, guarding, rebound, rigid Neurological exam: Present: alert, oriented X3, CN II-XII intact, reflexes normal. Absent: motor sensory deficit Course Vital Signs 08/06/23 12:08 Temperature 98.7 F Pulse Rate 88 Respiratory 18 Rate Blood Pressure 148/87 O2 Sat by Pulse 98 Oximetry EKG Findings - EKG Comments: EKG Findings:: EKG performed at 12: 19 A-fib with a rate of 61 QRS 121 QT/QTc 423/427 - EKG Results: EKG: interpreted by BUSHRA Medical Decision Making - Medical Decision Making Was pt. sent in by a medical professional or institution (, PA, [employer], urgent care, hospital, or care home...) When possible be specific @ -No Did you speak to anyone other than the patient for history (EMS, parent, family, police, friend...)? What history was obtained from this source @ -No Did you review nursing and triage notes (agree or disagree)? Why? @ -I reviewed and agree with nursing and triage notes Were old charts reviewed (outside hosp., previous admission, EMS record, old EKG, old radiological studies, urgent care reports/EKG's, care home records)? Report findings @ -No old charts were reviewed Differential Diagnosis (chest pain, altered mental status, abdominal pain women, abdominal pain men, vaginal bleeding, weakness, fever, dyspnea, syncope, headache, dizziness, GI bleed, back pain, seizure, CVA, palpatations, mental health, musculoskeletal)? @ -Differential Dizziness: Benign paroxysmal positional Vertigo, Menieres disease, otitis media, acoustic neuroma, vertebrobasilar insufficiency, cerebellar stroke, encephalitis, hypovolemic, arrhythmia, coronary artery syndrome, anemia, this is not meant to be an all-inclusive list EKG interpreted by me (3pts min.). @ -As above X-rays interpreted by me (1pt min.). @ -[Chest x-ray shows no acute cardiopulmonary process CT interpreted by me (1pt min.). @ -CT brain showing chronic changes no acute process U/S interpreted by me (1pt. min.). @ -[None done What testing was considered but not performed or refused? (CT, X-rays, U/S, labs)? Why? @ -MRI which will be completed inpatient What meds were considered but not given or refused? Why? @ -None Did you discuss the management of the patient with other professionals (pr ofessionals i.e. , PA, [employer], lab, RT, psych nurse, rn social work, hair boiler operator, teacher, court registry officer, manager of case)? Give summary @ -[Dr Guillen for admission secondary to persistent dizziness unable to ambulate concerning for possible posterior stroke Was smoking cessation discussed for >3mins.? @ -No Was critical care preformed (if so, how long)? @ -No Were there social determinants of health that impacted care today? How? (Homelessness, low income, unemployed, alcoholism, drug addiction, transpo rtation, low edu. Level, literacy, decrease access to med. care, assisted, rehab)? @ -No Was there de-escalation of care discussed even if they declined (Discuss DNR or withdrawal of care, Hospice)? DNR status @ -No What co-morbidities impacted this encounter? (DM, HTN, Smoking, COPD, CAD, Cancer, CVA, ARF, Chemo, Hep., AIDS, mental health diagnosis, sleep apnea, morbid obesity)? @ -[Polycythemia Was patient admitted / discharged? Hospital course, mention meds given and route, prescriptions, significant lab abnormalities, going to OR and other pertinent info. @ -Admitted patient has persistent dizziness requiring further evaluation by neurology I discussed the case with admitting physician request ESR, hematology consult regarding his polycythemia he requested IV fluids at 75 cc an hour patient has no focal deficits patient symptoms started over 24 hours ago. Undiagnosed new problem with uncertain prognosis? @ -No Drug Therapy requiring intensive monitoring for toxicity (Heparin, Nitro, In sulin, Cardizem)? @ -No Were any procedures done? @ -No Diagnosis/symptom? @ -[Persistent dizziness, difficulty ambulating, polycythemia Acute, or Chronic, or Acute on Chronic? @ -Acute Uncomplicated (without systemic symptoms) or Complicated (systemic symptoms)? @ -[Complicated Side effects of treatment? @ -[No Exacerbation, Progression, or Severe Exacerbation? @ -No Poses a threat to life or bodily function? How? (Chest pain, USA, ID, pneumonia, PE, COPD, DKA, ARF, appy, cholecystitis, CVA, Diverticulitis, Homicidal, Suicidal, threat to staff... and all critical care pts) @ -No - Lab Data Result diagrams: 08/06/23 11:53 08/06/23 13:06 Lab Results 08/06/23 08/06/23 08/06/23 Range/Units 11:53 11:53 13:06 WBC 4.8 (3.8-10.6) k/uL RBC 7.32 H (4.30-5.90) m/uL Hgb 18.0 H (13.0-17.5) gm/dL Hct 57.0 H (39.0-53.0) % MCV 77.8 L (80.0-100.0) fL MCH 24.5 L (25.0-35.0) pg MCHC 31.5 (31.0-37.0) g/dL RDW 17.8 H (11.5-15.5) % Plt Count 210 (150-450) k/uL MPV 10.9 Neutrophils % 63 % Lymphocytes % 23 % Monocytes % 9 % Eosinophils % 1 % Basophils % 1 % Neutrophils # 3.0 (1.3-7.7) k/uL Lymphocytes # 1.1 (1.0-4.8) k/uL Monocytes # 0.4 (0-1.0) k/uL Eosinophils # 0.0 (0-0.7) k/uL Basophils # 0.1 (0-0.2) k/uL Hypochromasia Moderate Poikilocytosis Slight Anisocytosis Slight Microcytosis Slight PT (10.0-12.5) sec INR (<1.2) APTT (22.0-30.0) sec Sodium 140 (137-145) mmol/L Potassium 3.9 (3.5-5.1) mmol/L Chloride 108 H (98-107) mmol/L Carbon Dioxide 24 (22-30) mmol/L Anion Gap 8 mmol/L BUN 13 (9-20) mg/dL Creatinine 0.61 L (0.66-1.25) mg/dL Est GFR (CKD-EPI)AfAm >90 (>60 ml/min/1.73 sqM) Est GFR (CKD-EPI)NonAf >90 (>60 ml/min/1.73 sqM) Glucose 88 (74-99) mg/dL Plasma Lactic Acid Jaison 1.4 (0.7-2.0) mmol/L Calcium 9.1 (8.4-10.2) mg/dL Magnesium 2.0 (1.6-2.3) mg/dL Total Bilirubin 1.5 H (0.2-1.3) mg/dL AST 30 (17-59) U/L ALT 15 (4-49) U/L Alkaline Phosphatase 99 (38-126) U/L Troponin I (0.000-0.034) ng/mL Total Protein 6.5 (6.3-8.2) g/dL Albumin 3.9 (3.5-5.0) g/dL Urine Color Urine Appearance (Clear) Urine pH (5.0-8.0) Ur Specific [place] (1.001-1.035) Urine Protein (Negative) Urine Glucose (UA) (Negative) Urine Ketones (Negative) Urine Blood (Negative) Urine Nitrite (Negative) Urine Bilirubin (Negative) Urine Urobilinogen (<2.0) mg/dL Ur Leukocyte Esterase (Negative) 08/06/23 08/06/23 08/06/23 Range/Units 13:06 13:06 14:02 WBC (3.8-10.6) k/uL RBC (4.30-5.90) m/uL Hgb (13.0-17.5) gm/dL Hct (39.0-53.0) % MCV (80.0-100.0) fL MCH (25.0-35.0) pg MCHC (31.0-37.0) g/dL RDW (11.5-15.5) % Plt Count (150-450) k/uL MPV Neutrophils % % Lymphocytes % % Monocytes % % Eosinophils % % Basophils % % Neutrophils # (1.3-7.7) k/uL Lymphocytes # (1.0-4.8) k/uL Monocytes # (0-1.0) k/uL Eosinophils # (0-0.7) k/uL Basophils # (0-0.2) k/uL Hypochromasia Poikilocytosis Anisocytosis Microcytosis PT 26.8 H (10.0-12.5) sec INR 2.7 H (<1.2) APTT 22.8 (22.0-30.0) sec Sodium (137-145) mmol/L Potassium (3.5-5.1) mmol/L Chloride (98-107) mmol/L Carbon Dioxide (22-30) mmol/L Anion Gap mmol/L BUN (9-20) mg/dL Creatinine (0.66-1.25) mg/dL Est GFR (CKD-EPI)AfAm (>60 ml/min/1.73 sqM) Est GFR (CKD-EPI)NonAf (>60 ml/min/1.73 sqM) Glucose (74-99) mg/dL Plasma Lactic Acid [place] (0.7-2.0) mmol/L Calcium (8.4-10.2) mg/dL Magnesium (1.6-2.3) mg/dL Total Bilirubin (0.2-1.3) mg/dL AST (17-59) U/L ALT (4-49) U/L Alkaline Phosphatase (38-126) U/L Troponin I <0.012 (0.000-0.034) ng/mL Total Protein (6.3-8.2) g/dL Albumin (3.5-5.0) g/dL Urine Color Colorless Urine Appearance Clear (Clear) Urine pH 7.0 (5.0-8.0) Ur Specific [place] 1.003 (1.001-1.035) Urine Protein Negative (Negative) Urine Glucose (UA) Negative (Negative) Urine Ketones Negative (Negative) Urine Blood Negative (Negative) Urine Nitrite Negative (Negative) Urine Bilirubin Negative (Negative) Urine Urobilinogen <2.0 (<2.0) mg/dL Ur Leukocyte Esterase Negative (Negative) Disposition Clinical Impression: Fall, Severe dizziness, Polycythemia Disposition: ADMITTED IP TO THIS HOSP Condition: Fair Referrals: Hakeem Guillen MD [Primary Care Provider] - 1-2 days Time of Disposition: 14:44
[2023-08-06] MEDS: MECLIZINE 12.5 MG TAB PO STA (12:46)
--- NOTE | 2023-08-06 12:51 | CT ---
EXAMINATION TYPE: CT brain wo con DATE OF EXAM: 08/06/2023 COMPARISON: None available. HISTORY: Dizziness with fall. CT DLP: 1156.4 mGycm Automated exposure control for dose reduction was used. FINDINGS: There is no acute intracranial hemorrhage, mass, mass effect, midline shift, extra-axial fluid collec tion or hydrocephalus. There is mild hypoattenuation in the periventricular white matter which likely relates to chronic isc hemic small vessel change. The gorman-white distinction is otherwise intact without evidence of an acut e major vessel infarct. IMPRESSION: CHRONIC CHANGES OF ACUTE INTRACRANIAL PROCESS.
--- NOTE | 2023-08-06 12:57 | XR ---
EXAMINATION TYPE: XR chest 2V DATE OF EXAM: 08/06/2023 COMPARISON: 07/26/2022. HISTORY: Syncopal. TECHNIQUE: Frontal and lateral views of the chest are obtained. FINDINGS: There is no focal airspace opacity. Cardiac silhouette is mildly enlarged and the pulmonary vessels are within normal limits. IMPRESSION: Mild cardiomegaly with no acute findings otherwise seen.
[2023-08-06] MEDS: SODIUM CHLORIDE 0.9% 500 ML 500 ML IV ONE (13:26)
[2023-08-06 14:06] LABS: INR 2.7 (<1.2); Prothrombin Time 26.8 sec (10.0-12.5)
[2023-08-06 14:07] LABS: Partial Thromboplastin Time 22.8 sec (22.0-30.0)
[2023-08-06 14:12] LABS: ALT 15 U/L (4-49); AST 30 U/L (17-59); African American GFR (CKD) >90 (>60 ml/min/1.73 sqM); Albumin 3.9 g/dL (3.5-5.0); Alkaline Phosphatase 99 U/L (38-126); Anion Gap 8 mmol/L; Blood Urea Nitrogen 13 mg/dL (9-20); Calcium 9.1 mg/dL (8.4-10.2); Carbon Dioxide 24 mmol/L (22-30); Chloride 108 mmol/L (98-107); Glucose 88 mg/dL (74-99); Non-African American GFR(CKD) >90 (>60 ml/min/1.73 sqM); Potassium 3.9 mmol/L (3.5-5.1); Sodium 140 mmol/L (137-145); Total Bilirubin 1.5 mg/dL (0.2-1.3); Total Protein 6.5 g/dL (6.3-8.2)
[2023-08-06 14:24] LABS: Appearance,Urine Clear (Clear); Bilirubin,Urine Negative (Negative); Blood,Urine Negative (Negative); Color,Urine Colorless; Glucose,Urine (UA) Negative (Negative); Ketones,Urine Negative (Negative); Leukocyte Esterase,Urine Negative (Negative); Nitrite,Urine Negative (Negative); Protein,Urine Negative (Negative); Specific Gravity,Urine 1.003 (1.001-1.035); Urobilinogen,Urine <2.0 mg/dL (<2.0)
[2023-08-06] MEDS ORDERED: ONDANSETRON 4 MG/2 ML VIAL IVP PRN (14:44)
[2023-08-06] MEDS ORDERED: NALOXONE 0.4 MG/ML 1 ML VIAL IV PRN (14:44)
[2023-08-06] MEDS: SCOPOLAMINE 1 MG/72 HR PATCH TRANSDERM ONE (14:56)
[2023-08-06] MEDS: SODIUM CHLORIDE 0.9% 1,000 ML IV SCH (14:57)
[2023-08-06] MEDS ORDERED: LORazepam 0.5 MG TAB PO PRN (16:50)
--- NOTE | 2023-08-06 17:47 | P.HPIM ---
History of Present Illness H&P Date: 08/06/23 Chief Complaint: Brought by EMS with a complaint of dizziness unable to stand up with weakne History and physical date of service 08/06/[address] Guillen Chief complaint: 72 years old white male presented by ambulance to the emergency department with the chief complaint of dizziness cannot walk without falling over and has been started 4 days ago and today was worse he lives at [facility] and they called that the EMS brought him to the hospital. History of present illness: 72 years old white male with the multiple medical problem with the history of genetic blood disease with polycythemia vera treated by Dr. Torres also he had history of dementia was treated by Dr. Gil as outpatient. Patient on this admission he lives in [facility] and he stated that he will live and Emely Granger he is relatable confused and disoriented he does not know his medication and his son came after patient was seen evaluated and he is trying to help us for history however it is very difficult as other person has been monitoring his medication. Patient and the son stated that he was severely dizzy could not stand up or take a steps without falling he could not explain exactly if the room rotated around him or his redated around the room, he has no blurred vision but when he laid down he had more dizziness that started 4 days ago however he feels better and today is returning back in the worse direction with the weakness of his lower extremities and could not stand up per the PA saw the patient in the ER. Patient past medical history Patient has polycythemia vera has been taking care by Dr. Torres but patient could not recall when he had last phlebotomy and his hemoglobin is [address] Gil neurologist has been seen the patient also and he had the diagnosis #1 dementia without behavioral disturbance, psychotic disturbance mood disturbance and anxiety Generalized anxiety disorder dementia and he has been started on Aricept/donepezil 10 mg at night and he did well with it Memory loss. Dr. 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 Torres on 03/21/2023 last time we seen patient for monitoring and he was 2.2 hide INR however he was at that time 60 mg tablet once daily at 8 PM. Former smoker Social history , retired Has 11 dog and 1 cat Children 2 daughters and 1 son. Former smoker from age [age] and smoking on 1983. Patient lives alone in [facility] assisted living. Patient on CPAP from Dr. Shawn Escobedo. Due to obstructive sleep apnea. Atrial fibrillation last echo on [address] 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 Review of system: Neuro underlying dementia and confusion currently severe dizziness affected his balance and probably mild dehydration with the hemoglobin 18 and RBCs is 7. Respiratory no symptoms no cough or expectoration history of obstructive sleep apnea on CPAP Cardiovascular no chest pain, chronic atrial fibrillation. And aortic stenosis. GI no diarrhea or constipation no abdominal pain, no complaint of incontinent Extremities bilateral varicose vein and no edema and history of blood clot in the past. Endocrine no history of thyroid disease or diabetes mellitus. Obesity with a BMI 39 class II. Medication at home: 1. Allopurinol 100 mg daily 2. Losartan 100 mg daily 3. Hydralazine 100 mg p.o. twice daily 4. Atorvastatin 40 mg nightly 5. Warfarin 6 mg tablet p.o. q. 8 AM #6 furosemide 20 mg every morning 7. Propranolol 20 mg t 8. Pantoprazole 40 mg AC breakfast daily in a.m. 9. Amlodipine 10 mg nightly. 10. Colchicine 0.6 mg 1 tablet as needed CPAP at bedtime. In the ER: Chest x-ray done indicating mild cardiomegaly, CT of the brain indicating chronic changes of acute intracranial process EKG atrial fibrillation with controlled ventricular response 61 bpm, right ventricular conduction delay, septal myocardial infarction, lateral myocardial infarction, abnormal ECG. On exam: Temperature 98.7 F oral, pulse rate 88/min with atrial fibs and irregularities, blood pressure 148/87 with a mean 107, oxygen saturation on room air 98%. On exam: Patient stated that 4 days ago he fell down on his face and caused some trauma to his nose and have a bleeding from the nose but that has resolved and no problem at this time but he had again today wobbly falling down and that how he asked to become to the emergency room The head was normocephalic atraumatic the pupil was equal reactive conjunctiva was pink sclera was nonicteric extraocular muscle movement is intact oropharynx was negative natural teeth hearing is normal neck was supple no JVD no thyromegaly no lymphadenopathy murmur on the neck probable transmitted murmur with a history of aortic stenosis considered. Chest normal breath sounds bilaterally with the underlying mild hyperinflation of the lung with a history of smoking Heart: Cardiomegaly and atrial fibrillation and apical murmur 2/6. Abdomen soft positive bowel sounds no organ enlargement history of prostate cancer. Extremities the have bilateral varicose veins and history of previous DVT in the past, pulses intact bilaterally minimal edema of the ankle due to the varicose veins, not wearing any compression stocking. Neurologically: Patient dizzy, wobbly on his feet, CT scan without the contrast is negative. With the confusion and disorientation. Psychiatry he is short tempered and he gets anxiety and and tolerable to any discussion. Assessment: Reviewed the lab with the RBC 7.32, hemoglobin 18, hematocrit 57.0, MCV 77.8. Pro time 26.8 and INR 2.7 and PTT 22.8. Chemistry lactic acid 1.4, glucose 88, liver enzyme normal troponin 1 less than 0.012 and creatinine 0.61 and GFR estimated for non- more than 90. Urine analysis negative Assessment: #1 possible dehydration #2 polycythemia vera with no apparent phlebotomy was a hemoconcentration. 3. Viral syndrome with labyrinthitis. 4. Gait abnormalities 5. Dementia 6. Polycythemia vera 7. Hypertension with hypertensive heart disease with cardiomegaly 8. Atrial fibrillation with controlled ventricular response 9. Aortic stenosis with the possibility of the following attacks and decrease the aortic valve surface area 10. Labyrinthitis., Benign positional vertigo. 11. Weakness of his lower extremities with inability to stand up and wobbly on his feet Plan: 1. Consultation with hematology oncology Dr. Thomas for evaluation and treatment and recommendation if he needs a phlebotomy or not 2. Consultation with neurology Dr. Bob for evaluation with the weakness of his lower extremities 3. Physical therapy consultation 4. Pharmacy requested for monitoring his pro time and INR patient on Coumadin therapy for atrial fibrillation 5. Echocardiogram to evaluate the tightness of the aortic stenosis with the hypertensive heart disease. 6. IV fluid for hydration currently on 75 cc/h. 7. 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 PROSTATE CANCER. History of Any Multi-Drug Resistant Organisms: None Reported Past Surgical History: Back Surgery, Joint Replacement, Orthopedic Surgery Additional Past Surgical History / Comment(s): Herniated disc repair, lt hip replacement , lt shoulder surgery, surgery on portal vein Past Anesthesia/Blood Transfusion Reactions: No Reported Reaction Past Psychological History: No Psychological Hx Reported Smoking Status: Former smoker Past Alcohol Use History: Rare Past Drug Use History: None Reported - Past Family History Father Family Medical History: Blood Disorder, Cancer, Deep Vein Thrombosis (DVT) Additional Family Medical History / Comment(s): Mother Family Medical History: Cancer Additional Family Medical History / Comment(s): Sister(s) Family Medical History: Blood Disorder, Deep Vein Thrombosis (DVT) Brother(s) Family Medical History: CVA/TIA Medications and Allergies Home Medications Medication Instructions Recorded Confirmed Type Atorvastatin [Lipitor] 40 mg PO HS 08/06/23 08/06/23 History Donepezil [Aricept] 10 mg PO HS 08/06/23 08/06/23 History Furosemide [Lasix] 20 mg PO DAILY 08/06/23 08/06/23 History LORazepam [Ativan] 0.25 mg PO BID PRN 08/06/23 08/06/23 History Losartan Potassium 100 mg PO DAILY 08/06/23 08/06/23 History Omeprazole 20 mg PO DAILY 08/06/23 08/06/23 History Propranolol [Inderal] 20 mg PO BID 08/06/23 08/06/23 History Warfarin Sodium 6 mg PO W/SUPPER 08/06/23 08/06/23 History allopurinoL 100 mg PO W/SUPPER 08/06/23 08/06/23 History hydrALAZINE HCL [Apresoline] 100 mg PO BID 08/06/23 08/06/23 History Allergies Allergy/AdvReac Type Severity Reaction Status Date / Time enalaprilat [From Vasotec] AdvReac Cough Verified 08/06/23 15:03 erythromycin base AdvReac Rash/Hives Verified 08/06/23 15:03 [From E-Mycin] Physical Exam Vitals: Vital Signs Temp Pulse Resp BP Pulse Ox 08/06/23 12:08 98.7 F 88 18 148/87 98 Intake and Output 08/06/23 08/06/23 08/06/23 06:59 14:59 22:59 Other: Weight 122.47 kg Results CBC & Chem 7: 08/06/23 11:53 08/06/23 13:06 Labs: Abnormal Lab Results - Last 24 Hours (Table) 08/06/23 08/06/23 08/06/23 Range/Units 11:53 13:06 13:06 RBC 7.32 H (4.30-5.90) m/uL Hgb 18.0 H (13.0-17.5) gm/dL Hct 57.0 H (39.0-53.0) % MCV 77.8 L (80.0-100.0) fL MCH 24.5 L (25.0-35.0) pg RDW 17.8 H (11.5-15.5) % PT 26.8 H (10.0-12.5) sec INR 2.7 H (<1.2) Chloride 108 H (98-107) mmol/L Creatinine 0.61 L (0.66-1.25) mg/dL Total Bilirubin 1.5 H (0.2-1.3) mg/dL
[2023-08-06] MEDS: allopurinoL 100 MG TAB PO SCH (18:16)
[2023-08-06] MEDS: LOSARTAN 50 MG TAB PO SCH (18:16)
[2023-08-06] MEDS: WARFARIN 3 MG TAB PO SCH (18:17)
[2023-08-06] MEDS: DONEPEZIL 10 MG TAB PO SCH (21:31)
[2023-08-06] MEDS: hydrALAZINE HCL 50 MG TAB PO SCH (21:31)
[2023-08-06] MEDS: PROPRANOLOL 20 MG TAB PO SCH (21:31)
[2023-08-06] MEDS: ATORVASTATIN 40 MG TAB PO SCH (21:31)
[2023-08-07 06:40] LABS: INR 2.6 (<1.2)
[2023-08-07 07:56] VITALS: RESP 16
[2023-08-07 08:45] LABS: Basophils # (A) 0.03 X 10*3/uL (0.00-0.10); Basophils % (A) 0.7 %; Eosinophils # (A) 0.07 X 10*3/uL (0.04-0.35); Eosinophils % (A) 1.6 %; HCT 54.2 % (39.6-50.0); HGB 16.3 g/dL (13.0-17.0); Immature Grans, Automated 0 %; Lymphocytes # (A) 1.39 X 10*3/uL (0.90-5.00); MCH 23.3 pg (27.0-32.0); MCHC 30.1 g/dL (32.0-37.0); MCV 77.4 FL (80.0-97.0); Mean Platelet Volume 8.8 FL (9.5-12.2); Monocytes % (A) 13.4 %; NRBC Per 100 WBC 0 X 10*3/uL (0.00-0.01); Neutrophils # (A) 2.39 X 10*3/uL (1.80-7.70); Neutrophils % (A) 53.3 %; Platelet Count 178 X 10*3/uL (140-440); RDW 21.2 % (11.5-14.5); WBC 4.48 X 10*3/uL (4.50-10.00)
[2023-08-07 08:55] LABS: BUN/Creat Ratio 12.75 Ratio (12.00-20.00); Blood Urea Nitrogen 10.2 mg/dL (9.0-27.0); Calcium 9.1 mg/dL (8.7-10.3); Carbon Dioxide 27.5 mmol/L (21.6-31.8); Chloride 106 mmol/L (96-109); Glucose 91 mg/dL (70-110); Potassium 3.9 mmol/L (3.5-5.5); Sodium 143 mmol/L (135-145)
[2023-08-07] MEDS: FUROSEMIDE 20 MG TAB PO SCH (09:04)
[2023-08-07] MEDS: PANTOPRAZOLE 40 MG TABLET PO SCH (09:04)
[2023-08-07] MEDS: ACETAMINOPHEN TAB 325 MG TAB PO PRN (09:07)
--- NOTE | 2023-08-07 11:04 | P.PN ---
Subjective Progress Note Date: 08/07/23 Progress note Date of service 08/07/[address] Guillen Patient seen and evaluated [id number] Patient stated he did not see yet the neurologist or the oncologist. Still feel dizzy, some headache. Afraid to stand and walk because of the fall. Reviewed the vital sign with the mild elevation of the blood pressure Reviewed the lab with the underlying sterile elevated hemoglobin and hematocrit and RBCs waiting for the hematology to see the patient Polycythemia vera under care of Dr. Martha CRUZ nurse transitional oncologist will see what his opinion. Lower extremity weakness etiology unclear waiting for the neurology for evaluation. Hypertension not well-controlled we increased the hydralazine to 3 times a day. Patient already on beta-florinda and CAESAR receptor inhibitor and Lasix. And the heart rate in the 60s. On exam: Head was normocephalic atraumatic, pupil equal reactive, oropharynx normal natural teeth was normal swallowing able to eat breakfast no choking and the CT scan in the ER was negative for acute events. Neck was supple no JVD no thyromegaly no lymphadenopathy no stiffness Chest is clear no wheezes or rhonchi's Heart significant aortic stenosis murmur with radiation in the apex and aortic area and to the carotid, echocardiogram was not done yet for evaluation of the aortic valve surface area. Atrial fibrillation with irregularities of the heart with a controlled ventricular response. Abdomen: No nausea no vomiting no diarrhea and no tenderness on the abdomen Extremities he had chronic varicosities of the lower extremities with history of DVT in the past, positive pulses. Psychiatry anxiety chronically present Neurologically inability to ambulate with the feeling of generalized weakness and his leg not moving as he described waiting for neuro evaluation Assessment: Waiting for the consultation evaluation by hematology oncology in regard of his polycythemia vera and for third treatment Waiting for neurology evaluation and treatment. Waiting for the results of the echocardiogram and the surface area of the aorta and if it is compromised we will consult cardiology and cardiac surgeon Dementia progressive Atrial fibrillation with controlled ventricular response Hyper lipidemia Mild dehydration History of prostate cancer prior assuming the care for the patient. Plan 1. Physical therapy consultation 2. Continue the current medication for dementia until evaluated by the neurologist 3. Waiting for the hematology oncology input for treatment. 4. Obtain PSA 5. Reviewed the lab, will decrease IV fluid to 50 cc an hour 6. Procalcitonin was normal. 7. Obtain carotid duplex study bilateral. Objective - Vital Signs Vital signs: Vital Signs Temp 98.3 F 08/07/23 07:00 Pulse 65 08/07/23 07:00 Resp 16 08/07/23 07:00 BP 160/96 08/07/23 07:00 Pulse Ox 99 08/07/23 07:00 FiO2 Intake & Output 08/06/23 08/07/23 08/07/23 18:59 06:59 18:59 Weight 122.47 kg 122.47 kg Other: Voiding Method Toilet Urinal # Voids 2 - Labs CBC & Chem 7: 08/07/23 06:09 08/07/23 06:09 Labs: Abnormal Lab Results - Last 24 Hours (Table) 08/06/23 08/06/23 08/06/23 Range/Units 11:53 13:06 13:06 WBC (4.50-10.00) X 10*3/uL RBC 7.32 H (4.30-5.90) m/uL Hgb 18.0 H (13.0-17.5) gm/dL Hct 57.0 H (39.0-53.0) % MCV 77.8 L (80.0-100.0) fL MCH 24.5 L (25.0-35.0) pg MCHC (32.0-37.0) g/dL RDW 17.8 H (11.5-15.5) % MPV (9.5-12.2) FL PT 26.8 H (10.0-12.5) sec INR 2.7 H (<1.2) Chloride 108 H (98-107) mmol/L Creatinine 0.61 L (0.66-1.25) mg/dL Total Bilirubin 1.5 H (0.2-1.3) mg/dL 08/07/23 08/07/23 Range/Units 06:09 06:09 WBC 4.48 L (4.50-10.00) X 10*3/uL RBC 7.00 H (4.30-5.90) m/uL Hgb (13.0-17.5) gm/dL Hct 54.2 H (39.0-53.0) % MCV 77.4 L (80.0-100.0) fL MCH 23.3 L (25.0-35.0) pg MCHC 30.1 L (32.0-37.0) g/dL RDW 21.2 H (11.5-15.5) % MPV 8.8 L (9.5-12.2) FL PT 26.0 H (10.0-12.5) sec INR 2.6 H (<1.2) Chloride (98-107) mmol/L Creatinine (0.66-1.25) mg/dL Total Bilirubin (0.2-1.3) mg/dL
--- NOTE | 2023-08-07 12:01 | P.CNNES ---
History of Present Illness Consult date: 08/07/23 Requesting physician: Hakeem Guillen Reason for Consult: Intractable dizziness History of Present Illness: Patient is a 72-year-old male with history of anxiety disorder, polycythemia, currently lives in assisted living facility, came to the hospital by ambulance yesterday at 11:24 AM for new onset dizziness in the past 5 days. Patient states that about 5 days ago, he slid off the bed. During that fall, he hit his head on something between his eyes and it bled. He did not pass out. He has developed headache, involving the frontal region since then. He also has developed dizziness, which is not present continually, but whenever he gets up or stands up, he feels dizzy. He denies it as spinning sensation, more like front and back motion dizziness. On the day of admission, he was getting out of bed, sat on the side of the bed and felt "wobbly" when he tried to walk, he was bouncing off the martinez into the bedroom and kitchen. He had to hold himself up. He denies any hearing loss, any tinnitus or pain or pressure in the ears. He denies any history of dizziness ever in the past. As per EMS flowsheet, when they arrived, patient has mentioned that he was in the process of using the restroom. Upon finishing, the patient states that he fell approximately 5 days ago hitting his forehead causing a laceration near the left brow. He had 1 to 2 cm laceration at the inner edge of the left brow in the healing stages with no discoloration noted. Patient mentioned that he has been having dizziness since then, with some relief the last couple days only for it to return again this morning. He states that he is dizzy when standing. He did not seek medical attention after he fell. EKG lead revealed atrial fibrillation consistent with patient's history. There were no focal symptoms like facial droop, or focal weakness or speech changes. Patient did mention that he had episodes of blurred vision over the last 5 days. Patient's vitals at the scene was blood pressure 143/100, pulse rate 64, respirations 16 saturation 99%. Blood test shows normal WBC, hemoglobin 18.0, hematocrit 57 platelets 210. INR 2.7. CHEM 20 is normal. Troponin negative. UA negative. EKG shows atrial fibrillation. CT head revealed chronic changes of small vessel disease, with no acute intracranial process. I personally reviewed CT head, agree with the findings. Visualized paranasal sinuses, EAC are completely clear. Chest x-ray revealed mild cardiomegaly with no acute findings. Home medications include warfarin, donepezil 10 mg at bedtime, propranolol 20 mg twice daily, hydralazine 100 mg twice daily, losartan 100 mg, allopurinol, Lipitor 40 mg omeprazole, Lasix 20 mg and lorazepam 0.25 mg twice daily as needed. Patient has history of hypertension but denies diabetes. He is a non-smoker, does not drink alcohol. Patient has significant anxiety disorder. Review of Systems Constitutional: Denies chills, Denies fever Eyes: denies blurred vision, denies diplopia, denies pain, denies loss of vision Ears: deny: decreased hearing, earache, tinnitus Ears, nose, mouth and throat: Reports headache (frontal since the fall), Denies sore throat, Denies vertigo Cardiovascular: Denies chest pain, Denies shortness of breath Respiratory: Denies cough, Denies excessive sputum Gastrointestinal: Reports diarrhea, Denies abdominal pain, Denies nausea, Denies vomiting Genitourinary: Reports incontinence, Reports urinary frequency Musculoskeletal: Reports neck pain, Denies low back pain, Denies myalgias Integumentary: Denies pruritus, Denies rash Neurological: Reports as per HPI Psychiatric: Reports anxiety, Denies depression Past Medical History Past Medical History: Blood Disorder, Cancer, Deep Vein Thrombosis (DVT), GERD/Reflux, Hypertension, Sleep Apnea/CPAP/BIPAP, Vascular Disorder Additional Past Medical History / Comment(s): polycythemia called hemoglobin [place] disease (can only take whole blood if needed-cannot have frozen plasma),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 PROSTATE CANCER. History of Any Multi-Drug Resistant Organisms: None Reported Past Surgical History: Back Surgery, Joint Replacement, Orthopedic Surgery Additional Past Surgical History / Comment(s): Herniated disc repair, lt hip replacement , lt shoulder surgery, surgery on portal vein Past Anesthesia/Blood Transfusion Reactions: No Reported Reaction Past Psychological History: No Psychological Hx Reported Smoking Status: Former smoker Past Alcohol Use History: Rare Additional Past Alcohol Use History / Comment(s): SMOKED FROM 1974- Past Drug Use History: None Reported - Past Family History Father Family Medical History: Blood Disorder, Cancer, Deep Vein Thrombosis (DVT) Additional Family Medical History / Comment(s): Mother Family Medical History: Cancer Additional Family Medical History / Comment(s): Sister(s) Family Medical History: Blood Disorder, Deep Vein Thrombosis (DVT) Brother(s) Family Medical History: CVA/TIA Medications and Allergies Home Medications Medication Instructions Recorded Confirmed Type Atorvastatin [Lipitor] 40 mg PO HS 08/06/23 08/06/23 History Donepezil [Aricept] 10 mg PO HS 08/06/23 08/06/23 History Furosemide [Lasix] 20 mg PO DAILY 08/06/23 08/06/23 History LORazepam [Ativan] 0.25 mg PO BID PRN 08/06/23 08/06/23 History Losartan Potassium 100 mg PO DAILY 08/06/23 08/06/23 History Omeprazole 20 mg PO DAILY 08/06/23 08/06/23 History Propranolol [Inderal] 20 mg PO BID 08/06/23 08/06/23 History Warfarin Sodium 6 mg PO W/SUPPER 08/06/23 08/06/23 History allopurinoL 100 mg PO W/SUPPER 08/06/23 08/06/23 History hydrALAZINE HCL [Apresoline] 100 mg PO BID 08/06/23 08/06/23 History Allergies Allergy/AdvReac Type Severity Reaction Status Date / Time enalaprilat [From Vasotec] AdvReac Cough Verified 08/06/23 15:03 erythromycin base AdvReac Rash/Hives Verified 08/06/23 15:03 [From E-Mycin] Physical Examination - Vital Signs Vital Signs: Vital Signs Temp Pulse Pulse Resp BP BP Pulse Ox 08/07/23 07:00 98.3 F 65 16 160/96 99 08/07/23 02:01 97.6 F 69 15 165/95 98 08/06/23 21:25 98.3 F 66 15 157/92 97 08/06/23 12:08 98.7 F 88 18 148/87 98 Intake and Output 08/06/23 08/07/23 08/07/23 22:59 06:59 14:59 Other: Voiding Method Toilet Urinal # Voids 0 2 Weight 122.47 kg Patient is an elderly male, in no acute distress. Patient appears to have significant anxiety. Patient is alert awake. Patient knows it is 2023, but could not tell the month. Speech and language functions are normal. Patient can name and repeat very well. No aphasia or dysarthria. Attention, concentration is intact and fund of knowledge is limited. On cranial nerve examination, pupils are equal, round and reacting to light, visual nichols are full on confrontation, with no neglect on double simultaneous stimulation. Extraocular muscles are intact with no nystagmus. Face is symmetric, tongue protrudes to the midline. Palatal elevation and sensation normal, hearing is at least moderately decreased for finger rubbing bilaterally and slightly decreased for routine conversation although he denies hearing problems. His shoulder shrug normal, facial sensation normal. Patient did notice dizziness when he rolled over to the right > left, and there was slight nystagmus noted. On muscle strength testing, there is no pronator drift and the strength is no rmal in arms and legs distally and proximally, except hip flexion which is 5- bilaterally. Deep tendon reflexes are symmetric 2 at the biceps, 2 brachioradialis, 1+ at the knees, 1 ankles and plantars are withdrawal bilaterally. Sensory to touch is equal with no neglect on double simultaneous stimulation. Cerebellar function showed no ataxia for [id number] testing. No dysdiadochokinesia. No ataxia for [id number] testing on either side. Tone and bulk of muscles normal. Gait deferred.. On general examination, there is no carotid bruit or murmur, S1-S2 audible. Chest is clear on consultation. Abdomen is soft nontender. No organomegaly, bowel sounds present. Patient has some skin discoloration/hyperpigmentation distally in the legs. Results - Laboratory Findings CBC and BMP: 08/07/23 06:09 08/07/23 06:09 Abnormal Lab Findings: Abnormal Labs 08/06/23 08/06/23 08/06/23 11:53 13:06 13:06 WBC RBC 7.32 H Hgb 18.0 H Hct 57.0 H MCV 77.8 L MCH 24.5 L MCHC RDW 17.8 H MPV PT 26.8 H INR 2.7 H Chloride 108 H Creatinine 0.61 L Total Bilirubin 1.5 H 08/07/23 08/07/23 06:09 06:09 WBC 4.48 L RBC 7.00 H Hgb Hct 54.2 H MCV 77.4 L MCH 23.3 L MCHC 30.1 L RDW 21.2 H MPV 8.8 L PT 26.0 H INR 2.6 H Chloride Creatinine Total Bilirubin Assessment and Plan Assessment: * Status post fall 5 days ago due to accidentally sliding off the bed, and hitting forehead on some object. Patient did not pass out or lost consciousness. Patient has developed intermittent positional vertigo since then. Probable BPPV. * History of prostate cancer * Hypertension * Polycythemia * Anxiety disorder * Possible early cognitive impairment. Patient on Aricept 10 mg. * Obesity Plan: * Patient's examination is nonfocal. Patient probably has developed BPPV. * Patient undergoing carotid Doppler and 2D echo. * We will check B12, folate, TSH. * Start meclizine 12.5 mg 3 times daily as needed. * If symptoms persist, may recommend vestibular rehabilitation. * PT, OT, evaluate gait and safety. * Other medical management as per IM and other specialties. * Neurologically clear, if the above test comes back normal. Thank you for the consultation.
--- NOTE | 2023-08-07 12:20 | CA ---
Transthoracic Echo Report Name: Felix Cowart Age: 72 Gender: M : 1950 Exam Date: 08/07/2023 09:49 Exam Location: [facility] Ht (in): 68 Wt (lb): 270 Ordering Physician: Hakeem Guillen MD Attending/Referring Phys: [employer]obile [employer]izer Procedure CPT: Indications: atrial fib .htnurgency,tia Cardiac Hx: Technical Quality: Technically difficult study Contrast 1: Definity Total Dose (mL): 2 Contrast 2: Total Dose (mL): MEASUREMENTS (Male / Female) Normal Values 2D ECHO LV Diastolic Diameter PLAX 4.0 cm 4.2 - 5.9 / 3.9 - 5.3 cm LV Systolic Diameter PLAX 2.1 cm IVS Diastolic Thickness 1.5 cm 0.6 - 1.0 / 0.6 - 0.9 cm LVPW Diastolic Thickness 1.8 cm 0.6 - 1.0 / 0.6 - 0.9 cm LV Relative Wall Thickness 0.8 RV Internal Dim ED PLAX 4.4 cm LA Volume 70.5 cm??? 18 - 58 / 22 - 52 cm??? LA Volume Index 28.4 cm???/m??? 16 - 28 cm???/m??? M-MODE Aortic Root Diameter MM 3.4 cm LA Systolic Diameter MM 4.8 cm LA Ao Ratio MM 1.4 AV Cusp Separation MM 1.5 cm DOPPLER AV Peak Velocity 126.2 cm/s AV Peak Gradient 6.4 mmHg AV Mean Velocity 92.4 cm/s AV Mean Gradient 3.7 mmHg AV Velocity Time Integral 29.9 cm LVOT Peak Velocity 111.2 cm/s LVOT Peak Gradient 4.9 mmHg LVOT Velocity Time Integral 27.3 cm MV E' Velocity 10.2 cm/s TR Peak Velocity 246.7 cm/s TR Peak Gradient 24.3 mmHg Right Ventricular Systolic Press 29.3 mmHg FINDINGS Left Ventricle Moderately increased septal wall thickness. Normal left ventricular systolic function with no obvious regional wall motion abnormalities. Left ventricular cavity size normal. Left ventricular ejection fraction is estimated at 55 %. Right Ventricle Mild right ventricular dilatation. Right Atrium Normal right atrial size. Left Atrium Moderately increased left atrial volume. Mildly increased left atrial area. Mitral Valve Structurally normal mitral valve. Mild mitral regurgitation. Mitral valve thickened. Moderate mitral annular calcification. Aortic Valve Aortic valve sclerosis. No aortic stenosis. No aortic regurgitation. Tricuspid Valve Structurally normal tricuspid valve. Mild tricuspid regurgitation. Pulmonic Valve Structurally normal pulmonic valve. Pericardium No pericardial effusion. Aorta Normal size aortic root and proximal ascending aorta. CONCLUSIONS Normal LV systolic function Left atrial enlargement Mitral annular calcification with mild mitral regurgitation Aortic sclerosis with restricted leaflet mobility but no significant gradients have been documented across aortic valve Technically suboptimal study Previewed by: Dr. Karl Ram MD (Electronically Signed) Final Date: 07 August 2023 12:19
--- NOTE | 2023-08-07 12:31 | US ---
EXAMINATION TYPE: US carotid duplex BILAT DATE OF EXAM: 08/07/2023 COMPARISON: NONE CLINICAL INDICATION: Male, 72 years old with history of Carotid bruits, carotid artery disease with a thero; Dizziness TECHNIQUE: Carotid duplex ultrasound examination. Indirect Doppler criteria was utilized. FINDINGS: EXAM MEASUREMENTS: RIGHT: Peak Systolic Velocity (PSV) cm/sec ----- Right CCA: 56.7 ----- Right ICA: 70.3 ----- Right ECA: 56.0 ICA/CCA ratio: 1.24 RIGHT: End Diastole cm/sec ----- Right CCA: 11.8 ----- Right ICA: 40.7 ----- Right ECA: 9.9 LEFT: Peak Systolic Velocity (PSV) cm/sec ----- Left CCA: 48.8 ----- Left ICA: 62.3 ----- Left ECA: 46.3 ICA/CCA ratio: 1.28 LEFT: End Diastole cm/sec ----- Left CCA: 11.9 ----- Left ICA: 41.4 ----- Left ECA: 8.2 VERTEBRALS (direction of flow): Right Vertebral: Antegrade Left Vertebral: Antegrade SEPTIC TANK SETTER NOTES: Mild plaque bilateral bifurcations. No evidence of increased velocities IMPRESSION: 1. No evidence of hemodynamically significant stenosis. 2. Mild plaque as above. Criteria for Assigning % of Stenosis / Diameter reduction (Estimation based on the indirect measurements of the internal carotid artery velocities (ICA PSV). 1. Normal (no stenosis)=ICA PSV < 125 cm/s: ratio < 2.0: ICA EDV<40 cm/s. 2. Less than 50% stenosis=ICA PSV < 125 cm/s: ratio < 2.0: ICA EDV<40 cm/s. 3. 50 to 69% stenosis=ICA PSV of 125 to 230 cm/s: ration 2.0 ? 4.0: ICA EDV 40-100 cm/s. 4. Greater than 70% stenosis to near occlusion= ICA PSV > 230 cm/s: ratio > 4.0: ICA EDV > 100 cm/s. 5. Near occlusion= ICA PSV velocities may be low or undetectable: variable ratio and ICA EDV. 6. Total occlusion=unable to detect flow.
[2023-08-07 15:00] VITALS: BMI 41.0
[2023-08-07] MEDS: hydrALAZINE HCL 50 MG TAB PO SCH (18:03)
--- NOTE | 2023-08-07 18:57 | P.CONS ---
History of Present Illness - Reason for Consult Consult date: 08/07/23 polycythemia Requesting physician: Prabhakar Finney - Chief Complaint dizziness - History of Present Illness Mr Cowart is a pleasant 72 year old male with multiple medical issues. He is a patient of Dr. Torres being treated for polycythemia. He was referred due to history of polycythemia, as well as multiple thromboses. The patient was found to have elevated hemoglobin in his early teens. He had his first episode of venous thrombosis in his legs around age 17. According to the daughter the hemoglobin elevation is genetic. She has the same condition, along with her siblings, and given her diagnosis of hemoglobin [place] when she was seen as a patient in this practice previously. The patient has been on warfarin since his teens. According to his daughter he has had about 9-10 episodes of venous thrombosis. It appears that these have typically occurred when his INRs have been subtherapeutic, and he has never been diagnosed with Coumadin failure. The patient had been getting regular phlebotomies, under the care of Dr. Jagdish Roberts, and then by his PCP Dr. Hernandez. The patient had testing done for primary MPD, that was negative. Erythropoietin level was elevated. Hypercoagulable workup was also negative, other than low protein C and protein S, due to warfarin effect. EGD and colonoscopy reports were obtained and reviewed, showing mild gastritis and esophagitis, and focal ulceration in the rectum with features of ischemic colitis. These procedures were done in 09/18. He had last received phlebotomy in 12/2022. He was diagnosed with polycythemia at a young age. 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 Interestingly hemoglobin electrophoresis was negative for evidence of a high affinity hemoglobin, with repeat after his visit in 12/24 for hemoglobin greater than 17. Patient was noted to have low iron stores despite not having had phlebotomies for 2-3 years, and was recommend to have GI workup, but never did f/u and was given additional referral at last f/u. At last f/u in 04/2023, hgb noted at 16.5, with goal og hgb <17, so no phlebotomy ordered at that time. Pt canceled last f/u appt on 07/10/23. Patient presented to the emergency room with dizziness. Patient reports ongoing intermittent dizziness over the last 5 days and had a fall approx 4 days ago striking his head, but denies LOC. Patient denies nausea vomiting but has chronic intermittent diarrhea. Has been tolerating oral intake. Upon admission CT head showed chronic changes and no acute intracranial process. CBC reviewed, upon admission hemoglobin was noted at 18.0 with hematocrit 57.0. Repeat CBC revealed hemoglobin of 16.3 and hematocrit of 54.2. Patient has received IV hydration. Patient reports dizziness has persisted. Denies CP and SOB. Ne urology has been consulted with plans for echo and carotid doppler. INR 2.7. Creatinine 0.8, GFR 95. Bilirubin 1.5, LFTs WNL. UA negative for acute UTI. Patient afebrile. 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 PROSTATE CANCER. History of Any Multi-Drug Resistant Organisms: None Reported Past Surgical History: Back Surgery, Joint Replacement, Orthopedic Surgery Additional Past Surgical History / Comment(s): Herniated disc repair, lt hip replacement , lt shoulder surgery, surgery on portal vein Past Anesthesia/Blood Transfusion Reactions: No Reported Reaction Past Psychological History: No Psychological Hx Reported Smoking Status: Former smoker Past Alcohol Use History: Rare Additional Past Alcohol Use History / Comment(s): SMOKED FROM Past Drug Use History: None Reported - Past Family History Father Family Medical History: Blood Disorder, Cancer, Deep Vein Thrombosis (DVT) Additional Family Medical History / Comment(s): Mother Family Medical History: Cancer Additional Family Medical History / Comment(s): Sister(s) Family Medical History: Blood Disorder, Deep Vein Thrombosis (DVT) Brother(s) Family Medical History: CVA/TIA Medications and Allergies Home Medications Medication Instructions Recorded Confirmed Type Atorvastatin [Lipitor] 40 mg PO HS 08/06/23 08/06/23 History Donepezil [Aricept] 10 mg PO HS 08/06/23 08/06/23 History Furosemide [Lasix] 20 mg PO DAILY 08/06/23 08/06/23 History LORazepam [Ativan] 0.25 mg PO BID PRN 08/06/23 08/06/23 History Losartan Potassium 100 mg PO DAILY 08/06/23 08/06/23 History Omeprazole 20 mg PO DAILY 08/06/23 08/06/23 History Propranolol [Inderal] 20 mg PO BID 08/06/23 08/06/23 History Warfarin Sodium 6 mg PO W/SUPPER 08/06/23 08/06/23 History allopurinoL 100 mg PO W/SUPPER 08/06/23 08/06/23 History hydrALAZINE HCL [Apresoline] 100 mg PO BID 08/06/23 08/06/23 History Allergies Allergy/AdvReac Type Severity Reaction Status Date / Time enalaprilat [From Vasotec] AdvReac Cough Verified 08/06/23 15:03 erythromycin base AdvReac Rash/Hives Verified 08/06/23 15:03 [From E-Mycin] Physical Exam Vitals: Vital Signs Temp Pulse Pulse Resp BP BP Pulse Ox 08/07/23 07:00 98.3 F 65 16 160/96 99 08/07/23 02:01 97.6 F 69 15 165/95 98 08/06/23 21:25 98.3 F 66 15 157/92 97 08/06/23 12:08 98.7 F 88 18 148/87 98 Intake and Output 08/06/23 08/07/23 08/07/23 22:59 06:59 14:59 Other: Voiding Method Toilet Urinal # Voids 0 2 Weight 122.47 kg - Constitutional General appearance: average body habitus, no acute distress - EENT Eyes: anicteric sclerae, EOMI ENT: hearing grossly normal - Respiratory Respiratory: bilateral: CTA - Cardiovascular Rhythm: regular Heart sounds: normal: S1, S2 - Gastrointestinal General gastrointestinal: soft, no tenderness - Integumentary Integumentary: no cyanotic, no jaundiced - Neurologic no focal deficits - Musculoskeletal Musculoskeletal: strength equal bilaterally - Psychiatric Psychiatric: A&O x's 3 Results CBC & Chem 7: 08/07/23 06:09 08/07/23 06:09 Labs: Abnormal Lab Results - Last 24 Hours (Table) 08/06/23 08/06/23 08/06/23 Range/Units 11:53 13:06 13:06 WBC (4.50-10.00) X 10*3/uL RBC 7.32 H (4.30-5.90) m/uL Hgb 18.0 H (13.0-17.5) gm/dL Hct 57.0 H (39.0-53.0) % MCV 77.8 L (80.0-100.0) fL MCH 24.5 L (25.0-35.0) pg MCHC (32.0-37.0) g/dL RDW 17.8 H (11.5-15.5) % MPV (9.5-12.2) FL PT 26.8 H (10.0-12.5) sec INR 2.7 H (<1.2) [place] 108 H (98-107) mmol/L Creatinine 0.61 L (0.66-1.25) mg/dL Total Bilirubin 1.5 H (0.2-1.3) mg/dL 08/07/23 08/07/23 Range/Units 06:09 06:09 WBC 4.48 L (4.50-10.00) X 10*3/uL RBC 7.00 H (4.30-5.90) m/uL Hgb (13.0-17.5) gm/dL Hct 54.2 H (39.0-53.0) % MCV 77.4 L (80.0-100.0) fL MCH 23.3 L (25.0-35.0) pg MCHC 30.1 L (32.0-37.0) g/dL RDW 21.2 H (11.5-15.5) % MPV 8.8 L (9.5-12.2) FL PT 26.0 H (10.0-12.5) sec INR 2.6 H (<1.2) [place] (98-107) mmol/L Creatinine (0.66-1.25) mg/dL Total Bilirubin (0.2-1.3) mg/dL CT Scan - head: report reviewed Assessment and Plan (1) Fall Current Visit: Yes Status: Acute Priority: High Code(s): W19.XXXA - UNSP ECIFIED FALL, INITIAL ENCOUNTER SNOMED Code(s): 5948379 (2) Polycythemia Current Visit: Yes Status: Acute Priority: Medium Code(s): D75.1 - SECONDARY POLYCYTHEMIA SNOMED Code(s): 104613793 (3) Severe dizziness Current Visit: Yes Status: Acute Priority: High Code(s): R42 - DIZZINESS AND GIDDINESS SNOMED Code(s): 208458112 Plan: Dizziness: Presented c/o intermittent dizziness over the last 5 days and had a fall approx 4 days ago striking his head, but denies LOC. Patient denies nausea vomiting but has chronic intermittent diarrhea. Has been tolerating oral intake. -Upon admission CT head showed chronic changes and no acute intracranial processes -Neurology following. Echo and carotid doppler ordered -Defer management to IM and neurology Polycythemia: -Full history in HPI -The patient had testing done for primary MPD, that was negative. Hypercoagulable workup was also negative, other than low protein C and protein S, due to warfarin effect. He had last received phlebotomy in 12/2022. 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 Interestingly hemoglobin electrophoresis was negative for evidence of a high affinity hemoglobin. Patient was noted to have low iron stores despite not having had phlebotomies for 2-3 years, and was recommend to have GI workup, but never did f/u and was given additional referral. At last f/u in 04/2023, hgb noted at 16.5, with goal of hgb <17, so no phlebotomy ordered at that time. Pt canceled last f/u appt on 07/10/23. -Upon admission hemoglobin was noted at 18.0 with hematocrit 57.0. Repeat CBC revealed hemoglobin of 16.3 and hematocrit of 54.2. Patient has received IV hyd ration. -No phlebotomy warranted at this time as hgb is now noted at 16.3. Initial hgb of 18.0 was likely r/t hemoconcentration. Will continue to monitor -Will schedule clinic f/u upon discharge and will plan to continue to monitor CBC and phlebotomies as needed for hgb >17. Will also need to ensure patient has f/u with GI as previously recommended attests: I have seen and examined patient, performed H&P, developed impression and plan of care. Discussed with dictator. Agree with docum entation, dictated as a scribe
[2023-08-07] MEDS: MECLIZINE 12.5 MG TAB PO PRN (21:54)
[2023-08-08 07:42] LABS: INR 2.8 (<1.2); Prothrombin Time 27.7 sec (10.0-12.5)
[2023-08-08] MEDS: CYANOCOBALAMIN 1,000 MCG/ML 1 ML VIAL IM ONE (10:52)
--- NOTE | 2023-08-08 13:12 | P.DS ---
Providers Date of admission: 08/06/23 14:35 Expected date of discharge: 08/08/23 Attending physician: Hakeem Guillen Consults: 08/06/23 14:42 Consult Physician Routine Consulting Provider: Manny Torres Consult Reason/Comments: polycythemia vera Do you want consulting provider notified?: Yes Consult Physician Urgent Consulting Provider: Ted Mead Consult Reason/Comments: Intractable dizziness Do you want consulting provider notified?: Yes Primary care physician: Hakeem Guillen Dictation discharge summary. Date of service 08/08/[address] Guillen. Final diagnosis: Benign positional vertigo per Dr. Bob neurologist Polycythemia vera with the hemoglobin on admission 18 Mild dehydration with hemoconcentration no treatment rendered by oncology. Atrial fibrillation with controlled ventricular response. Patient on Coumadin anticoagulant has been monitored by cardiology. Dementia progressive followed by Dr. Gil neurologist as outpatient Neurologist in the hospital diagnosis cognitive function impairment. Vitamin B12 deficiency Cardiomegaly, hypertension with hypertensive heart disease. Chronic anxiety neurosis. GERD disease. Full code Allergy: #1 erythromycin No. 2 enalapril Consulting physicians: 1. Dr. Torres hematology oncology 2. Dr. Bob neurologist. Procedure: 1. CT scan of the brain in the ER. 2. Echocardiogram 3. Carotid duplex study. 4. EKG. Disposition discharge home to assisted living with clearance from hematology oncology with no added treatment and follow-up Recommended to follow-up with the sewer and drain technician and the doctor had appointment Follow-up with his neurologist Dr. Gil for the dementia cleared by Dr. Bob neurology in the hospital Follow-up with Dr. Abbott station examiner with the underlying atrial fibrillation on anticoagulation with Coumadin as well as the suspicious of aortic stenosis which has been negated by echocardiogram done in the hospital on this admission indicating aortic sclerosis with no gradient. Presentation in the ER Severe dizziness, wobbly on his feet and falling because imbalance. Hospital course: Patient admitted, consultation with the hematology oncology due to polycythemia vera and hematocrit and hemoglobin was 18. The CT scan was negative for bleed, neurology consult indicating benign positional vertigo cleared for discharge. Discussed with his daughter Lu in detail on the phone in front of her that. Exam on discharge: Vital sign: Blood pressure 131/90 with a mean 103. Pulse rate 65-64/min regular, temperature 97.9 F oral, respiratory rate 16/min. Head was normocephalic atraumatic, pupil equal reactive, normal hearing, oropharynx natural teeth with the underlying dizziness when he laid down and [id number] with the associated with the inner ear. Neck: Supple no JVD no thyromegaly no lymphadenopathy trachea midline. Positive bruits associated with transmission from the aortic area, carotid duplex study was nonhemodynamically stenosis. Chest: Clear to auscultation percussion no wheezes no rhonchi's Heart echocardiogram read by Dr. Rian Barajas with the conclusion normal left ventricular systolic function, left atrial enlargement, mitral annular calcification with mild mitral regurg, aortic sclerosis with restricted leaflet mobility but no significant gradient., Ejection fraction 55%. With the underlying atrial fibrillation compensated heart 0 Abdomen soft obese positive bowel sounds no tenderness in the 4 quadrant Extremities he had history of chronic varicosities bilateral with venous insufficiency. Psychiatry and anxiety. Neurology: No lateralizing sign with the presence of dizziness, benign positional vertigo. 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 Doshi as outpatient Follow-up with the gastroenterology as he recommended as outpatient Follow-up with the neurology Dr. Gil as outpatient Follow-up with Dr. Abbott as outpatient Continue the current dose of Coumadin and to be monitored by Dr. Abbott in the Coumadin clinic. Patient Condition at Discharge: Fair Plan - Discharge Summary New Discharge Prescriptions: New Meclizine [Antivert] 12.5 mg PO TID PRN #30 tab PRN Reason: Vertigo Acetaminophen Tab [Tylenol] 650 mg PO Q6HR PRN tab PRN Reason: Mild Pain Or Fever > 100.5 hydrALAZINE HCL [Apresoline] 100 mg PO TID tab Continue LORazepam [Ativan] 0.25 mg PO BID PRN PRN Reason: Anxiety Warfarin Sodium 6 mg PO W/SUPPER Donepezil [Aricept] 10 mg PO HS Propranolol [Inderal] 20 mg PO BID Losartan Potassium 100 mg PO DAILY allopurinoL 100 mg PO W/SUPPER Atorvastatin [Lipitor] 40 mg PO HS Furosemide [Lasix] 20 mg PO DAILY Discontinued hydrALAZINE HCL [Apresoline] 100 mg PO BID No Action Omeprazole 20 mg PO DAILY Discharge Medication List Atorvastatin [Lipitor] 40 mg PO HS 08/06/23 [History] Donepezil [Aricept] 10 mg PO HS 08/06/23 [History] Furosemide [Lasix] 20 mg PO DAILY 08/06/23 [History] LORazepam [Ativan] 0.25 mg PO BID PRN 08/06/23 [History] Losartan Potassium 100 mg PO DAILY 08/06/23 [History] Omeprazole 20 mg PO DAILY 08/06/23 [History] Propranolol [Inderal] 20 mg PO BID 08/06/23 [History] Warfarin Sodium 6 mg PO W/SUPPER 08/06/23 [History] allopurinoL 100 mg PO W/SUPPER 08/06/23 [History] Acetaminophen Tab [Tylenol] 650 mg PO Q6HR PRN tab 08/08/23 [Rx] Meclizine [Antivert] 12.5 mg PO TID PRN #30 tab 08/08/23 [Rx] hydrALAZINE HCL [Apresoline] 100 mg PO TID tab 08/08/23 [Rx] Follow up Appointment(s)/Referral(s): Manny Torres [STAFF PHYSICIAN] - 1 Week Dulce Gil MD [REFERRING] - 1 Week Franky Abbott DO [STAFF PHYSICIAN] - 1 Week Hakeem Guillen MD [Primary Care Provider] - 1-2 days Discharge Disposition: HOME SELF-CARE
--- NOTE | 2023-08-08 13:15 | P.PN ---
Subjective Progress Note Date: 08/08/23 Patient was seen for the follow-up. Patient is sitting comfortably in the recliner. Patient states he does not feel exceptionally good, feels "blah". He states his 4 years ago. He has been lonely. His dizziness is about 40% better. He is trying to walk, and is better. No new concerns. Patient sometimes speaks out of context, still appears slightly delirious, hyperverbal. Objective - Vital Signs Vital signs: Vital Signs Temp 97.9 F 08/08/23 07:00 Pulse 58 L 08/08/23 12:10 Resp 16 08/08/23 09:07 BP 131/90 08/08/23 12:10 Pulse Ox 99 08/08/23 07:00 FiO2 Intake & Output 08/07/23 08/08/23 08/08/23 18:59 06:59 18:59 Weight 122.47 kg Other: Voiding Method Toilet Toilet # Voids 2 2 # Bowel Movements 2 3 - Exam Patient states it is August 2063, and that he is in [place] in [place], but then said [place]. He could not tell current president. Speech and language functions are normal. He is completely alert and awake. Pupils are equal, round and reactive to light, visual nichols are full, face is symmetric and tongue protrudes to midline. On muscle status and there is no pronator drift. The strength is normal. Sensations equal. - Labs CBC & Chem 7: 08/07/23 06:09 08/07/23 06:09 Labs: Abnormal Lab Results - Last 24 Hours (Table) 08/08/23 Range/Units 06:51 PT 27.7 H (10.0-12.5) sec INR 2.8 H (<1.2) Assessment and Plan Assessment: * Status post fall 5 days ago due to accidentally sliding off the bed, and hitting forehead on some object. Patient did not pass out or lost consciousness. Patient has developed intermittent positional vertigo since then. Probable BPPV. * Mild delirium * History of prostate cancer * Hypertension * Polycythemia * Anxiety disorder * B12 deficiency * Possible early cognitive impairment. Patient on Aricept 10 mg. * Tree of DVT, on warfarin. * Obesity Plan: * Patient's examination is nonfocal. Patient probably has developed BPPV. Continue meclizine as needed. * Carotid Doppler revealed no evidence of hemodynamically significant stenosis. Antegrade flow in both vertebral arteries. * 2D echo revealed normal left ventricular systolic function with EF 55%, no regional wall motion abnormalities. Moderate left atrial enlargement. Mitral annular calcification with mild mitral regurgitation. Aortic sclerosis with restricted leaflet mobility but no significant gradients. * B12 291, folate 11.5, TSH 1.81. Patient has low B12, will give vitamin B12 1000 mcg IM x 1 dose followed by B12 orally daily. * If symptoms persist, may recommend vestibular rehabilitation. * Continue warfarin for history of DVT. INR therapeutic. * Orthostatics were checked, supine blood pressure 141/86, heart rate 63. Sitting blood pressure 131/90, pulse rate 64. Standing 149/89 with pulse of 58. Orthostatics negative. * Neurologically clear.
[2023-08-08 15:05] VITALS: BP 111/71; PULSE 88; TEMP 98
== END 2023-08-08 16:50 | disposition home or self-care (01) ==
LOC: EC 11:24 → 6NMEDSUR 14:35
PROVIDERS: ADMIT Internal Medicine; ATTEND Internal Medicine
DX: H81.10 Benign paroxysmal vertigo, unspecified ear (principal); D75.1 Secondary polycythemia; B34.9 Viral infection, unspecified; H83.09 Labyrinthitis, unspecified ear; I48.91 Unspecified atrial fibrillation; K21.9 Gastro-esophageal reflux disease without esophagitis; F03.90 Unspecified dementia, unspecified severity, without behavioral disturbance, psychotic disturbance, mood disturbance, and anxiety; F41.1 Generalized anxiety disorder; D68.59 Other primary thrombophilia; M19.90 Unspecified osteoarthritis, unspecified site; M10.9 Gout, unspecified; G47.33 Obstructive sleep apnea (adult) (pediatric); R26.9 Unspecified abnormalities of gait and mobility; I11.9 Hypertensive heart disease without heart failure; I35.0 Nonrheumatic aortic (valve) stenosis; E53.8 Deficiency of other specified B group vitamins; E66.9 Obesity, unspecified; Z68.39 Body mass index [BMI] 39.0-39.9, adult; Z85.46 Personal history of malignant neoplasm of prostate; Z86.718 Personal history of other venous thrombosis and embolism; Z87.891 Personal history of nicotine dependence; Z79.01 Long term (current) use of anticoagulants; Z79.899 Other long term (current) drug therapy; Z88.1 Allergy status to other antibiotic agents
CPT/HCPCS: 96361 ×3; 96372; 96360; 99285; 36415; 93005; 97162; 97530; 97535; 97167; 83880; 80053; 80048; 85652; 84443; 82607; 82746; 83605; 83735; 84484; 85025 ×2; 85610 ×3; 85730; 81003; 84145; 71046; 93880; 70450; G0378 ×3; C8929; G0103; J3420; Q9957; 93306

== ENCOUNTER → 2023-12-18 | Day surgery (SDC) | payer MEDICARE ==
[~2023-12-18] MED LIST changes: +LIDOCAINE 1% (10MG/ML) FOR IV START INTRADERMA PRN; +LIDOCAINE 2% (PF) 20 MG/ML 5 ML VIAL ONE; +PROPOFOL 10 MG/ML 20 ML VIAL IV ONE; -SODIUM CHLORIDE 0.9% 500 ML 500 ML in EMPTY BAG 1 BAG IV PRN
[2023-12-18] MEDS: IV FLUID CONTINUATION 1,000 ML IV ONE (08:11)
[2023-12-18 08:13] VITALS: TEMP 97.1
[2023-12-18] MEDS: LACTATED RINGERS 1,000 ML IV SCH (08:20)
--- NOTE | 2023-12-18 08:56 | P.GSHP ---
History of Present Illness H&P Date: 12/18/23 Chief Complaint: GERD, iron deficiency anemia, colon cancer screening 73-year-old male here for upper and lower endoscopy. Patient poor historian. Per report he has iron deficiency anemia. Due for screening colonoscopy. Last colonoscopy 7 years ago. Patient with history of previous peptic ulcer disease. Patient is on Coumadin at home. Per chart patient is on omeprazole at home. 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 uses cpap. hx PROSTATE CANCER. History of Any Multi-Drug Resistant Organisms: None Reported Past Surgical History: Back Surgery, Joint Replacement, Orthopedic Surgery Additional Past Surgical History / Comment(s): Herniated disc repair, lt hip replacement , lt shoulder surgery, surgery on portal vein. prostate removed Past Anesthesia/Blood Transfusion Reactions: No Reported Reaction Additional Past Anesthesia/Blood Transfusion Reaction / Comment(s): daughter n/v Smoking Status: Former smoker - Past Family History Father Family Medical History: Blood Disorder, Cancer, Deep Vein Thrombosis (DVT) Additional Family Medical History / Comment(s): Mother Family Medical History: Cancer Additional Family Medical History / Comment(s): Sister(s) Family Medical History: Blood Disorder, Deep Vein Thrombosis (DVT) Brother(s) Family Medical History: CVA/TIA Medications and Allergies Home Medications Medication Instructions Recorded Confirmed Type Atorvastatin [Lipitor] 40 mg PO HS 08/06/23 12/18/23 History Donepezil [Aricept] 10 mg PO HS 08/06/23 12/18/23 History Furosemide [Lasix] 20 mg PO DAILY 08/06/23 12/18/23 History LORazepam [Ativan] 0.25 mg PO BID PRN 08/06/23 12/18/23 History Losartan Potassium 100 mg PO DAILY 08/06/23 12/18/23 History Omeprazole 20 mg PO DAILY 08/06/23 12/18/23 History Propranolol [Inderal] 20 mg PO BID 08/06/23 12/18/23 History Warfarin Sodium 6 mg PO W/SUPPER 08/06/23 12/14/23 History allopurinoL 100 mg PO W/SUPPER 08/06/23 12/18/23 History Acetaminophen Tab [Tylenol] 650 mg PO Q6HR PRN tab 08/08/23 12/14/23 Rx Meclizine [Antivert] 12.5 mg PO TID PRN #30 tab 08/08/23 12/14/23 Rx hydrALAZINE HCL [Apresoline] 100 mg PO TID tab 08/08/23 12/18/23 Rx Allergies Allergy/AdvReac Type Severity Reaction Status Date / Time enalaprilat [From Vasotec] AdvReac Cough Verified 12/18/23 08:01 erythromycin base AdvReac Rash/Hives Verified 12/18/23 08:01 [From E-Mycin] Surgical - Exam Vital Signs Temp Pulse Resp BP Pulse Ox 97.1 F L 83 16 131/91 98 12/18/23 08:11 12/18/23 08:11 12/18/23 08:11 12/18/23 08:11 12/18/23 08:11 Physical exam: General: Well-developed, well-nourished HEENT: Normocephalic, sclerae nonicteric Abdomen: Nontender, nondistended Extremities: No edema Neuro: Alert and oriented Assessment and Plan (1) Colon cancer screening Narrative/Plan: Will proceed with upper and lower endoscopy Current Visit: Yes Status: Acute Code(s): Z12.11 - ENCOUNTER FOR SCREENING FOR MALIGNANT NEOPLASM OF COLON SNOMED Code(s): 716725571
[2023-12-18 09:27] VITALS: RESP 14
--- NOTE | 2023-12-18 09:33 | P.PCN ---
Date of Procedure: 12/18/23 Procedure(s) Performed: PREOPERATIVE DIAGNOSIS: GERD, iron deficiency anemia, screening POSTOPERATIVE DIAGNOSIS: Gastritis, diverticulosis, transverse colon polyp PROCEDURE: 1. EGD with biopsy 2. Colonoscopy with snare polypectomy ANESTHESIA: MAC SURGEON: Ki Dela Cruz M.D. SPECIMENS: Antrum, polyp ENDOSCOPIC PROCEDURE: The patient was on the endoscopy table in the left decubitus position. The Olympus gastroscope was inserted into the oropharynx and passed under direct visualization to the region of the third portion of the duodenum. From that point the scope was slowly withdrawn inspecting all surfaces carefully. There were no neoplastic inflammatory or polypoid lesions throughout the duodenum. The pylorus was widely patent. The stomach was carefully inspected. There was mild gastritis present. 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 A biopsy of the antrum took place to rule out H. pylori. Retroflexion revealed a normal hiatus. The esophagus was then carefully examined. There were no neoplastic inflammatory or polypoid lesions throughout the visualized esophagus. The patient was kept on the endoscopy table in the left decubitus position. The Olympus colonoscope was inserted into the anus and passed under direct visualization to the base of the cecum. The appendiceal orifice was visualized. From that point the scope was slowly withdrawn inspecting all surfaces carefully. There were no neoplastic inflammatory or polypoid lesions throughout the cecum or ascending colon. In the transverse colon a small polyp was seen and removed using the snare with cautery technique. The remainder of the transverse descending sigmoid and rectum appeared normal. The patient had moderate diverticulosis throughout the colon. Digital rectal examination was normal. The patient was taken to the recovery room in stable condition per anesthesia guidelines. RECOMMENDATIONS: Await biopsy results. Continue anemia workup. Tentatively plan repeat colonoscopy 5 to 7 years.
[2023-12-18 09:39] VITALS: BP 120/73; PULSE 71
== END ==
LOC: ORWHC2ENDO 07:31
PROVIDERS: ATTEND Surgery
DX: K29.50 Unspecified chronic gastritis without bleeding (principal); K57.30 Diverticulosis of large intestine without perforation or abscess without bleeding; K63.5 Polyp of colon; I10 Essential (primary) hypertension; I49.9 Cardiac arrhythmia, unspecified; K31.A0 Gastric intestinal metaplasia, unspecified; I48.91 Unspecified atrial fibrillation; K21.9 Gastro-esophageal reflux disease without esophagitis; E78.5 Hyperlipidemia, unspecified; G47.33 Obstructive sleep apnea (adult) (pediatric); Z86.718 Personal history of other venous thrombosis and embolism; Z85.46 Personal history of malignant neoplasm of prostate; Z96.642 Presence of left artificial hip joint; Z90.79 Acquired absence of other genital organ(s); Z87.891 Personal history of nicotine dependence; Z82.3 Family history of stroke; Z80.9 Family history of malignant neoplasm, unspecified; Z88.1 Allergy status to other antibiotic agents; Z79.899 Other long term (current) drug therapy; Z79.01 Long term (current) use of anticoagulants
CPT/HCPCS: 88305; 45385; 43239; J2704; J2001

== ENCOUNTER → 2024-04-08 | Outpatient (CLI) | payer MEDICARE ==
[2024-04-08 17:13] LABS: Anisocytosis Slight; HGB 16.4 gm/dL (13.0-17.5); Hypochromasia Marked; MCH 25.2 pg (25.0-35.0); MCV 81.4 fL (80.0-100.0); Mean Platelet Volume 6.7; Microcytosis Slight; Platelet Count 177 k/uL (150-450); RBC 6.51 m/uL (4.30-5.90); RDW 18.3 % (11.5-15.5); WBC 4.9 k/uL (3.8-10.6)
[2024-04-08 17:39] LABS: Creatinine,Urine Random 109.7 mg/dL; Protein/Creatinine Ratio,Urine 0.21
[2024-04-08 18:23] LABS: Basophils # (M) 0.05 k/uL (0-0.2); Lymphocytes # (M) 1.76 k/uL (1.0-4.8); Neutrophils # (M) 2.79 k/uL (1.3-7.7); Neutrophils % (M) 57 %; Nucleated Red Blood Cells 0 /100 WBC (0-0); Total Cells Counted 100
[2024-04-08 18:25] LABS: Reticulocyte % 1.8 % (0.5-2.0)
[2024-04-09 02:32] LABS: Basophils % (A) 1 %; Eosinophils % (A) 2 %; Lymphocytes % (A) 25 %; Monocytes % (A) 11 %; NRBC Per 100 WBC 0 X 10*3/uL (0.00-0.01); Neutrophils % (A) 61 %
[2024-04-09 03:16] LABS: Appearance,Urine Clear (Clear); Bilirubin,Urine Negative (Negative); Blood,Urine Negative (Negative); Color,Urine Yellow (Yellow); Ketones,Urine Trace (Negative); Nitrite,Urine Negative (Negative); PH, Urine 5.5
[2024-04-09 03:59] LABS: % Iron Saturation 7.56 (15.00-50.00); ALT 12 U/L (10-49); AST 23 U/L (14-35); Albumin 4.1 g/dL (3.8-4.9); Albumin/Globulin Ratio 1.86 Ratio (1.60-3.17); Alkaline Phosphatase 86 U/L (41-126); BUN/Creat Ratio 19.88 Ratio (12.00-20.00); Blood Urea Nitrogen 15.9 mg/dL (9.0-27.0); Calcium 9.5 mg/dL (8.7-10.3); Carbon Dioxide 26.3 mmol/L (21.6-31.8); Chloride 106 mmol/L (96-109); Chol/HDL Ratio 2.58 Ratio; Creatine Kinase 99 U/L (35-257); Ferritin 12.6 ng/mL (22.0-322.0); Globulin 2.2 g/dL (1.6-3.3); Glucose 98 mg/dL (70-110); Iron 31 UG/DL (65-175); LDL Cholesterol,Calculated 51.1 mg/dL (0.0-131.0); Phosphorus 3.3 mg/dL (2.4-5.1); Potassium 3.9 mmol/L (3.5-5.5); Sodium 143 mmol/L (135-145); Total Bilirubin 1.4 mg/dL (0.3-1.2); Total Iron Binding Capacity 410 UG/DL (228-460); Total Protein 6.3 g/dL (6.2-8.2); VLDL Calculation 15.12 mg/dL (5.00-40.00)
[2024-04-09 04:06] LABS: C Reactive Protein <0.30 mg/dL (0.00-0.80); Prostate Specific Antigen <0.01 ng/mL (0.000-6.500)
[2024-04-09 04:11] LABS: Erythrocyte Sedimentation Rate 7 mm/Hr (0-20)
== END | disposition home or self-care (01) ==
LOC: LABWHC1 16:19
PROVIDERS: ATTEND Internal Medicine
DX: C61 Malignant neoplasm of prostate (principal); E55.9 Vitamin D deficiency, unspecified; E87.8 Other disorders of electrolyte and fluid balance, not elsewhere classified; M10.00 Idiopathic gout, unspecified site; R31.0 Gross hematuria; D75.1 Secondary polycythemia; D59.9 Acquired hemolytic anemia, unspecified
CPT/HCPCS: 36415; 80053; 80061; 81003; 82043; 82306; 82550; 82570; 82728; 83036; 83540; 83550; 83735; 84100; 84153; 84156; 84443; 84550; 85025; 85045; 85652; 86140; 87086

== ENCOUNTER → 2024-04-22 | Outpatient (CLI) | payer MEDICARE ==
[2024-04-22 13:00] LABS: African American GFR (CKD) >90 (>60 ml/min/1.73 sqM); Blood Urea Nitrogen 13 mg/dL (9-20); Non-African American GFR(CKD) >90 (>60 ml/min/1.73 sqM)
--- NOTE | 2024-04-22 14:56 | CT ---
EXAMINATION TYPE: CT abdomen pelvis w con CT DLP: 1651 mGycm, Automated exposure control for dose reduction was used. DATE OF EXAM: 04/22/2024 2:47 PM COMPARISON: CT abdomen pelvis 02/23/2017 CLINICAL INDICATION:Male, 73 years old with history of R10.30 LOWER ABDOMINAL PAIN Z85.46 HX PROSTATE CA; Lower abdominal pain, hx prostate ca TECHNIQUE: Standard CT of the abdomen and pelvis following the administration of 100 cc of Isovue 3 00 IV contrast material and oral contrast. Coronal and sagittal reformats were performed. FINDINGS: LOWER CHEST: The visualized lung bases are clear. Mild cardiomegaly. Aortic valve calcifications. Jero ral annulus calcifications. ABDOMEN LIVER: Unremarkable GALLBLADDER AND BILE DUCTS: Unremarkable. PANCREAS: Unremarkable. SPLEEN: Unremarkable. ADRENAL GLANDS: Unremarkable. KIDNEYS AND URETERS: No evidence of hydronephrosis or renal calculus. The kidneys enhance symmetrical ly. Contrast demonstrated within both collecting systems on the delayed phase. PELVIS BLADDER: Incompletely distended but grossly unremarkable. REPRODUCTIVE: Prostate gland is surgically absent. ABDOMEN & PELVIS STOMACH AND BOWEL: Small hiatal hernia, duodenum is unremarkable. Enteric contrast reaches the rectum . No focal bowel wall thickening or surrounding inflammatory changes. Sigmoid diverticulosis without evidence for acute diverticulitis. The appendix is within normal limits. No evidence of bowel obstruc tion. PERITONEUM: No evidence of pneumoperitoneum or free fluid. VASCULATURE: Mild atherosclerotic calcifications are present throughout the abdominal aorta and its b ranches. No evidence of aortic aneurysm. MUSCULOSKELETAL: No acute osseous abnormalities. Postsurgical changes from left total hip arthroplast y. S-shaped scoliotic curvature of the visualized thoracolumbar spine. Partial fusion of the L2-L3 ve rtebral bodies. Moderate multilevel degenerative disease. No aggressive osseous lesions. LYMPH NODES: No gross evidence for lymphadenopathy. SOFT TISSUE/ABDOMINAL WALL: Fat filled left inguinal hernia. Supraumbilical ventral midline multiple hernias containing fat and mesenteric vessels. IMPRESSION: 1. No acute abdominal systolic process. 2. Sigmoid diverticulosis without evidence for acute diverticulitis. 3. Post surgical changes from prostatectomy. 4. Fat filled left inguinal hernia. 5. Supraumbilical ventral ventral wall hernias containing fat and mesenteric vessels. [facility], , 04/22/2024 2:53 PM
== END | disposition home or self-care (01) ==
LOC: RADCTMAIN 12:16
PROVIDERS: ATTEND Internal Medicine
DX: K57.30 Diverticulosis of large intestine without perforation or abscess without bleeding (principal); K40.90 Unilateral inguinal hernia, without obstruction or gangrene, not specified as recurrent; I70.0 Atherosclerosis of aorta; M41.85 Other forms of scoliosis, thoracolumbar region; Z85.46 Personal history of malignant neoplasm of prostate
CPT/HCPCS: 82565; 84520; 74177; 36415; Q9967